=== PATIENT | male | born 1970 | race Caucasian/White ===

== ENCOUNTER → 2017-09-29 07:56 | Outpatient (CLI) | payer BC, SELFPAY ==
[2017-09-29 10:43] LABS: ALB/GLOB Ratio 1.4 RATIO (0.9-2.4); AST(SGOT) 23 U/L (15-37); Alanine Aminotransfer ALT/SGPT 58 U/L (16-61); Albumin, Serum 4.1 g/dL (3.2-5.0); Alkaline Phosphatase 83 U/L (45-117); Anion Gap 11 (5-15); BUN 14 mg/dL (7-18); BUN/Creat Ratio 14.6 RATIO (10-20); Calcium,Total 8.7 mg/dL (8.5-10.1); Chloride 102 mmol/L (98-107); Cholesterol 95 mg/dL (200); Creatinine, Serum 0.96 mg/dL (0.70-1.30); EST Glomerular Filtration Rate 89 mL/min (>60); Est Glom Filt Rate - Afr Amer 108 mL/min (>60); Glucose 268 mg/dL (74-106); High Density Lipoprotein 45 mg/dL; Protein, Total 7.1 g/dL (6.4-8.2); Sodium Level 136 mmol/L (136-145); Thyroid Stim Hormone (TSH) 1.04 uIU/mL (0.358-3.74); Triglycerides 142 mg/dL; Uric Acid 6.4 mg/dL (3.5-7.2); Very Low Density Lipoprotein 28 mg/dL (5-40)
[2017-09-29 11:14] LABS: Erythrocyte Sedimentation Rate < 1 mm/hr (0-15)
== END ==
PROVIDERS: Family Provider Family Medicine; PCP Family Medicine; Visit Provider Family Medicine
DX: M06.9 Rheumatoid arthritis, unspecified (principal); E11.9 Type 2 diabetes mellitus without complications; M10.9 Gout, unspecified
CPT/HCPCS: 36415; 80053; 80061; 81241; 82306; 84403; 84443; 84550; 85652

== ENCOUNTER 2018-07-23 14:01 | Outpatient (RCR) | payer BC, SELFPAY | END 2018-08-03 23:59 | LOC: NS 14:01 | PROVIDERS: Family Provider Family Medicine; PCP Family Medicine; Visit Provider Family Medicine | DX: E11.9 Type 2 diabetes mellitus without complications (principal); Z71.3 Dietary counseling and surveillance | CPT/HCPCS: 97802 ==

== ENCOUNTER 2018-09-01 16:00 | Outpatient (RCR) | payer BC, SELFPAY | END 2018-09-03 23:59 | LOC: NS 16:00 | PROVIDERS: Family Provider Family Medicine; PCP Family Medicine; Visit Provider Family Medicine | DX: E11.9 Type 2 diabetes mellitus without complications (principal); Z71.3 Dietary counseling and surveillance | CPT/HCPCS: 97803 ==

== ENCOUNTER 2018-10-28 16:00 | Outpatient (RCR) | payer BC, SELFPAY | END 2018-10-28 23:59 | disposition home or self-care (01) | LOC: NS 16:00 | PROVIDERS: Family Provider Family Medicine; PCP Family Medicine; Visit Provider Family Medicine | DX: E11.9 Type 2 diabetes mellitus without complications (principal); Z71.3 Dietary counseling and surveillance | CPT/HCPCS: 97803 ==

== ENCOUNTER → 2019-09-07 08:19 | Outpatient (CLI) | payer BC, SELFPAY ==
[2019-09-07 11:30] LABS: ALB/GLOB Ratio 1.3 RATIO (0.9-2.4); AST(SGOT) 8 U/L (15-37); Alanine Aminotransfer ALT/SGPT 33 U/L (16-61); Albumin, Serum 4.3 g/dL (3.2-5.0); Alkaline Phosphatase 98 U/L (45-117); Anion Gap 10 (5-15); BUN 20 mg/dL (7-18); BUN/Creat Ratio 16.4 RATIO (10-20); Calcium,Total 9.4 mg/dL (8.5-10.1); Chloride 102 mmol/L (98-107); Cholesterol 158 mg/dL (200); Creatinine, Serum 1.22 mg/dL (0.70-1.30); EST Glomerular Filtration Rate 67 mL/min (>60); Est Glom Filt Rate - Afr Amer 81 mL/min (>60); Globulin 3.4 g/dL (2.2-4.2); Glucose 310 mg/dL (74-106); High Density Lipoprotein 66 mg/dL; Potassium 4.3 mmol/L (3.5-5.1); Protein, Total 7.7 g/dL (6.4-8.2); Sodium Level 135 mmol/L (136-145); Thyroid Stim Hormone (TSH) 0.93 uIU/mL (0.358-3.74); Triglycerides 162 mg/dL; Very Low Density Lipoprotein 32 mg/dL (5-40)
== END ==
PROVIDERS: PCP Family Medicine; Referring Provider Family Medicine; Visit Provider Family Medicine
DX: M10.9 Gout, unspecified (principal); E11.9 Type 2 diabetes mellitus without complications
CPT/HCPCS: 36415; 80053; 80061; 84403; 84443; 84550

== ENCOUNTER 2021-04-25 16:29 | Inpatient (IN) | payer BC, SELFPAY ==
[2021-04-25] VITALS (9 sets, daily range): BP systolic 102–117; BP diastolic 68–87; PULSE 82–103; RESP 18–20; TEMP 36.8–37.2; O2SAT 87–94; BMI 30.4; BMI 29.7
--- NOTE | 2021-04-25 16:36 | RAD_ITS ---
STUDY: X-RAY CHEST REASON FOR EXAM: Male, 51 years old. COUGH TECHNIQUE: Single AP portable view of the chest. COMPARISON: None. FINDINGS: No pleural effusion. Moderate pulmonary opacities bilaterally suspicious for pneumonia. Normal size heart. Normal mediastinum and jeff. Normal visualized pulmonary arteries. Normal visualized aortic arch and descending thoracic aorta. Normal visualized thoracic spine. Normal visualized ribs, clavicles, and shoulders. There is no demonstrated abnormality of the visualized soft tissue structures of the upper abdomen. RAD/Chest 1 View IMPRESSION: Bilateral pulmonary opacities suspicious for pneumonia. Electronically Signed: Azra Mattson MD at 17:48 EDT Tel , Service support ,
[2021-04-25 17:17] LABS: Absolute Lymphocyte Count 0.86 X10^3/uL (0.83-4.51); Absolute Neutrophil Count 6.5 X10^3/uL (2.0-7.7); Basophil# 0.02 X10^3/uL; Basophil% 0.3 % (0-1); Hematocrit 46.9 % (40-54); Hemoglobin 16.1 g/dL (13.0-16.5); Lymphocyte # 0.86 X10^3/ul (0.83-4.51); Mean Corp Hgb Conc 34.3 g/dL (32-36); Mean Corpuscular Hgb 29.4 pg (27.0-32.0); Mean Corpuscular Volume 85.6 fL (80-94); Mean Platelet Vol. 11.1 fl (6.2-12.0); Monocyte# 0.37 X10^3/uL; Monocyte% 4.7 % (0-10); NRBC Flagged by Analyzer 0 % (0-5); Neutrophil # 6.45 X10^3/uL (2.7-7.7); Neutrophil % 82.7 % (47-70); Platelet Count 164 K/mm3 (150-450); RBC Distribution Width CV 12.2 % (11.6-14.6); RBC Distribution Width SD 38.2 fl (35.1-43.9); Red Blood Count 5.48 M/mm3 (4.6-6.2); White Blood Count 7.8 K/mm3 (4.4-11.0)
--- NOTE | 2021-04-25 17:30 | EX.ED.DYSGE1 ---
HPI History of Present Illness Chief Complaint: General Illness Detail of Chief Complaint: Shortness of breath and generalized weakness Informant: patient Narrative Narrative: Patient presents to the emergency department chief complaint of feeling weak and short of breath. Patient states that he was diagnosed with COVID-19 on April 18. Patient started with symptoms on the . Patient had had his first COVID-19 vaccine on the . Patient states that his pulse ox today's been in the 84% range at home. He has had fevers at home up to 104. He denies any chest pain. Patient's had intermittent nausea and vomiting as well as some intermittent diarrhea. Patient has history of diabetes as well as hypertension and high cholesterol. Prior similar symptoms: No PFSH [facility] Medical History (Updated 04/25/21 @ 20:[address] Leia Aguilar, ) Diabetes HLD (hyperlipidemia) Hypertension Allergy/AdvReac Type Severity Reaction Status Date / Time No Known Allergies Allergy Verified 04/25/21 16:32 Social History Smoking Status: Never smoker ROS [facility] ED Constitutional Constitutional ED: Reports systems reviewed and no addt'l complaints, except as documented and fever(s); Denies body ache(s), change in weight or chills Eyes Eyes: Denies acute decrease in peripheral vision, change in vision, double vision or loss of vision ENT ENT ED: Reports none; Denies ear pain, lip swelling, loss taste/smell, neck pain, otalgia or sore throat Cardiovascular Cardiovascular: Reports none; Denies abdominal pain, chest pain with activity, leg edema, lightheadedness, palpitations, rapid heart rate or syncope Respiratory/Chest Respiratory/Chest: Reports none, cough and dyspnea; Denies change in mental status, dry cough, hemoptysis, shortness of breath at rest or shortness of breath with exertion Gastrointestinal Gastrointestinal: Reports none; Denies abdominal pain, change in stool character, diarrhea, hematemesis, hematochezia, melena, rectal bleeding or vomiting Genitourinary Genitourinary ED: Reports none; Denies abdominal discomfort, anuria, dysuria, genital pain or polyuria Musculoskeletal Musculoskeletal: Reports none and myalgias; Denies arthralgias, back pain, difficulty walking, extremity pain or muscle weakness Integumentary Reports none; Denies abscess or rash Neurologic Neurologic: Reports none and weakness; Denies abnormal gait, confusion, focal weakness, frequent falls, headache(s), loss of vision, numbness, paresthesias, radicular pain or vertigo Psychiatric Psychiatric: Reports systems reviewed and no addt'l complaints, except as documented and none; Denies behavioral changes, confusion, difficulty concentrating, hallucinations, suicidal ideation, tactile hallucinations or visual hallucinations Endocrine Endocrinology: Denies none, cold intolerance, excessive sweating, fatigue or heat intolerance Hematologic/Lymphatic Hematologic/Lymphatic: Reports none; Denies anemia, easy bleeding or easy bruising Allergic/Immunologic Allergic/Immunologic ED: Denies as per HPI, none, lip swelling, mouth swelling, throat swelling, tongue swelling or hives EXAM Physical Exam Const Vital Signs: 04/25/21 16:30 04/25/21 17:17 04/25/21 18:15 Temperature 98.3 F 98.3 F Temperature Source Temporal Temporal Pulse Rate 103 H 103 H Respiratory Rate 20 H 20 H Respiratory Effort Normal Non-Labored Respiratory Pattern Normal Blood Pressure 117/87 H 117/87 H Blood Pressure Mean 97 97 Pulse Ox 91 91 87 Oxygen Delivery Method Room Air Room Air Room Air Oxygen Flow Rate (L/min) 04/25/21 18:20 04/25/21 18:22 Temperature 98.9 F Temperature Source Temporal Pulse Rate 84 Respiratory Rate 18 Respiratory Effort Respiratory Pattern Blood Pressure 102/68 Blood Pressure Mean 79 Pulse Ox 93 94 Oxygen Delivery Method Nasal Cannula Nasal Cannula Oxygen Flow Rate (L/min) 6 6 Positive well nourished and well developed General Appearance ED: well developed and NAD HEENT Reports TM's clear and moist mucous membranes normocephalic and atraumatic; Negative for trauma or tenderness Tympanic Membrane ED: Yes TM's clear Eyes PERRL and EOMs intact bilaterally General Eye ED: Negative for pale conjunctiva or scleral icterus Neck no lymphadenopathy, supple and no JVD General: Negative for tenderness Chest Wall inspection of chest normal and palpation of chest normal Chest: Negative for tenderness Resp normal respiratory effort and clear to auscultation bilaterally Effort and Inspection: Negative for respiratory distress or pain with movement Auscultation: Negative for rhonchi, wheezes or diminished lung sounds Cardio regular rhythm, S1 normal heart sound, S2 normal heart sound and no murmurs Rate: tachycardic Peripheral Pulses: pulses 2+ throughout GI normal to inspection, nondistended, normoactive bowel sounds, soft to palpation, non-tender, non-distended and no masses Back/Spine no CVA tenderness and no thoracic nor lumbar tenderness Extremity normal to inspection General Extremety ED: Negative for edema General Extremity: Negative for edema Neuro oriented x3, CN's II-XII intact bilaterally, no sensory deficits noted and gait normal Sensorium / Orientation: awake, alert, oriented to person, oriented to place and oriented to time Motor Exam: strength 5/5 throughout and strength abnormal Psych mental status grossly normal Skin no rashes or lesions noted and no wounds MDM MDM MDM Narrative Medical decision making narrative: Patient required significant O2 and is up to 6 L currently. There is no evidence of PE on exam. He is noted to have Covid pneumonia. Case will be discussed with hospitalist to evaluate patient for admission. He did receive dexamethasone 6 mg p.o. Patient will receive potassium chloride 40 mEq p.o. Lab Data Attestation: I reviewed the patient's lab results. Labs: Laboratory Results - last 24 hr 04/25/21 04/25/21 04/25/21 17:05 17:05 18:15 WBC 7.8 RBC 5.48 Hgb 16.1 Hct 46.9 MCV 85.6 MCH 29.4 MCHC 34.3 RDW Std Deviation 38.2 RDW Coeff of Vimal 12.2 Plt Count 164 MPV 11.1 Immature Gran % (Auto) 1.300 H Neut % (Auto) 82.7 H Lymph % (Auto) 11.0 L [place] % (Auto) 4.7 Eos % (Auto) 0.0 Baso % (Auto) 0.3 Absolute Neuts (auto) 6.5 Absolute Lymphs (auto) 0.86 Nucleated RBC % 0 D-Dimer Quant (PE/DVT) 0.87 H* Sodium 131 L Potassium 3.1 L Chloride 99 Carbon Dioxide 24.0 Anion Gap 8 BUN 21 H Creatinine 0.78 Estim Creat Clear Calc 116.99 Est GFR (MDRD) Af Amer 135 Est GFR (MDRD) Non-Af 112 BUN/Creatinine Ratio 26.9 H Glucose 87 Lactic Acid Calcium 8.5 04/25/21 18:15 WBC RBC Hgb Hct MCV MCH MCHC RDW Std Deviation RDW Coeff of Vimal Plt Count MPV Immature Gran % (Auto) Neut % (Auto) Lymph % (Auto) [place] % (Auto) Eos % (Auto) Baso % (Auto) Absolute Neuts (auto) Absolute Lymphs (auto) Nucleated RBC % D-Dimer Quant (PE/DVT) Sodium Potassium Chloride Carbon Dioxide Anion Gap BUN Creatinine Estim Creat Clear Calc Est GFR (MDRD) Af Amer Est GFR (MDRD) Non-Af BUN/Creatinine Ratio Glucose Lactic Acid 1.2 Calcium Radiography Chest X-Ray - ED: 1 View Diagnostic Testing: Radiology Impression Chest X-Ray 04/25/21 16:36 IMPRESSION: Bilateral pulmonary opacities suspicious for pneumonia. Electronically Signed: Azra Mattson MD at 17:48 EDT Tel , Service support , Chest CTA 04/25/21 19:03 IMPRESSION: 1. No pulmonary embolism or arterial dissection. 2. Bilateral pneumonia. Consider typical and atypical etiologies including pneumonia. Electronically Signed: Azra Mattson MD at 19:55 EDT Tel , Service support , 1 view chest x-ray obtained interpreted by myself as bilateral infiltrates. Radiology in agreement. Discharge Plan Triage Chief Complaint: General Illness ED Provider: Leia Aguilar Dx/Rx/DC Orders Clinical Impression: 2019 novel coronavirus-infected pneumonia (NCIP), Hypoxemia Primary Care Provider: Azar Ivy Referrals: Azar Ivy MD [Primary Care Provider] - Disposition Disposition: Acute Care Hospital [facility]
[2021-04-25 17:32] LABS: Anion Gap 8 (5-15); BUN 21 mg/dL (7-18); BUN/Creat Ratio 26.9 RATIO (10-20); Calcium,Total 8.5 mg/dL (8.5-10.1); Chloride 99 mmol/L (98-107); Creatinine, Serum 0.78 mg/dL (0.70-1.30); EST Glomerular Filtration Rate 112 mL/min (>60); Est Glom Filt Rate - Afr Amer 135 mL/min (>60); Estimated Creatinine Clearance 116.99 ml/min; Glucose 87 mg/dL (74-106); Potassium 3.1 mmol/L (3.5-5.1); Sodium Level 131 mmol/L (136-145)
[2021-04-25] MEDS: dexAMETHasone 4 MG Tablet 6 MG PO (18:08)
[2021-04-25] MEDS: 0.9% Normal Saline 1,000 ML 150 ML IV (18:09)
[2021-04-25 18:47] LABS: D-Dimer Quantitative (DVT/PE) 0.87 FEU/ug/m (0.27-0.49)
[2021-04-25 18:58] LABS: Lactic Acid 1.2 mmol/L (0.4-1.9)
--- NOTE | 2021-04-25 19:03 | CT_ITS ---
STUDY: CTA CHEST REASON FOR EXAM: Male, 51 years old. dyspnea RADIATION DOSAGE (If Supplied By Facility): CTDIvol = ( 15.04 ) mGy, DLP = ( 516.01 ) mGycm TECHNIQUE: The examination was performed with the intravenous administration of IV 100mL Isovue-370. Post-processing of the angiographic images was performed, with multiplanar reformation and 3D reconstruction. Individualized dose optimization techniques were used for this CT. COMPARISON: None. FINDINGS: Heart size and pericardium are unremarkable. The aorta is normal in caliber. No aneurysm or dissection. There is no mediastinal mass or adenopathy. There is no hilar or axillary adenopathy. There is no evidence of pulmonary embolus. There is no pleural effusion. Extensive bilateral airspace disease bilaterally consistent with pneumonia. Visualized abdomen is unremarkable. There is no osseous abnormality. CT/CTA Chest W/WO Contrast IMPRESSION: 1. No pulmonary embolism or arterial dissection. 2. Bilateral pneumonia. Consider typical and atypical etiologies including pneumonia. Electronically Signed: Azra Mattson MD at 19:55 EDT Tel , Service support ,
--- NOTE | 2021-04-25 20:09 | HP.PCM.HOS_ITS ---
HPI - General General Date of Admission: 04/25/21 Date of Service: 04/25/21 Chief Complaint: COVID Dx w/ worsening symptoms, cough, hypoxia, dyspnea. HPI Narrative The patient is a 51 y/o M w/ PMHx: Obesity, Diabetes mellitus type II, HTN, HLD, Anxiety and Depression who [facility] with history of significant fatigue, malaise with diagnosis of COVID-19 on 04/18/2021 with symptoms starting the day prior reporting that he did have his initial COVID-19 vaccination on the with progressively worsening fevers, chills, nausea, emesis, intermittent loose stools and worsening hypoxia with dyspnea and cough per his home pulse ox reporting at 84% when he is attempting to be active prompting eventual ED evaluation. Patient additionally reports decreased sense of taste and smell as well as body aches. His and his 2 children who are 17 and 20, all with only one single vaccination specifically Pfizer prior to onset of their symptoms are also ill at home. Work-up in the ED included T 98.9, heart rate 103, BP 117/87, respiratory rate 20, initially 87% on room air with eventual improvement to 94% on 6 L nasal cannula, CBC with WC 7.8, hemoglobin 16.1, platelet 164 with mild increased immature granulocytes otherwise no marked shift, D-dimer 0.87, BMP with sodium 131, potassium 3.1, BUN/creatinine 21/0.78, glucose 87, lactic acid 1.2, chest x-ray with bilateral pulmonary opacities suspicious for pneumonia, follow-up CTPA with no evidence of pulmonary emboli or arterial dissection, evident bilateral pneumonia, rapid Covid antigen was negative however he was tested outpatient already and was positive with presentation and imaging consistent with COVID-19, blood culture x2 pending per ED. in the ED patient ministered Decadron 6 mg p.o. x1 as well as normal saline. [facility] Medical History (Updated 04/25/21 @ 20:[address] Jenna Doe MD) Anxiety and depression Diabetes HLD (hyperlipidemia) Hypertension Obesity Home Medications atorvastatin 10 mg PO DAILY 04/25/21 [History Last Taken 04/25/21] benazepril 20 mg PO DAILY 04/25/21 [History Last Taken 04/25/21] dapagliflozin [Farxiga] 5 mg PO DAILY 04/25/21 [History Last Taken 04/25/21] duloxetine 30 mg PO DAILY 04/25/21 [History Last Taken 04/25/21] glipizide 10 mg PO BID 04/25/21 [History Last Taken 04/25/21] metformin 750 mg PO BID 04/25/21 [History Last Taken 04/25/21] Allergy/AdvReac Type Severity Reaction Status Date / Time No Known Allergies Allergy Verified 04/25/21 16:32 Family History (Updated 04/25/21 @ 20:[address] Jenna Doe MD) Mother History of venous thromboembolism Factor V Leiden mutation Father Heart disease Diabetes Surgical History (Updated 04/25/21 @ 20:[address] Jenna Doe MD) No significant past surgical history Social History (Updated 04/25/21 @ 20:[address] Jenna Doe MD) household members: spouse and children Smoking Status: Never smoker alcohol intake: never substance use type: does not use ROS ROS Narrative Admission Review of Systems: CONSTITUTIONAL: No weight loss, +fever, chills, weakness or fatigue. HEENT: Headache, sore throat, altered sense of taste and smell, congestion Eyes: No visual loss, blurred vision, double vision or yellow sclerae. Ears, Nose, Throat: No hearing loss, sneezing. SKIN: No rash or itching, lesions, wounds. CARDIOVASCULAR: No chest pain, chest pressure or chest discomfort, palpitations, edema, orthopnea, syncopal events. RESPIRATORY: +shortness of breath, cough without marked sputum, No wheezing, hemoptysis. GASTROINTESTINAL: + anorexia, nausea, vomiting, diarrhea, No abdominal pain, melena, BRBPR. GENITOURINARY: No dysuria, frequency, urgency or retention. NEUROLOGICAL: + headache, No dizziness, syncope, paralysis, ataxia, numbness or tingling in the extremities, focal weakness, change in bowel or bladder control, seizure. MUSCULOSKELETAL:+ muscle, back pain, joint pain or stiffness. HEMATOLOGIC: No anemia, bleeding or bruising. LYMPHATICS: No enlarged nodes. No history of splenectomy. PSYCHIATRIC: + history of depression or anxiety. ENDOCRINOLOGIC: No reports of sweating, cold or heat intolerance. No polyuria or polydipsia. ALLERGIES: No history of asthma, hives, eczema or rhinitis. Vital Signs Vital Signs Vital Signs: 04/25/21 16:30 04/25/21 17:17 04/25/21 18:15 Temperature 98.3 F 98.3 F Temperature Source Temporal Temporal Pulse Rate 103 H 103 H Respiratory Rate 20 H 20 H Respiratory Effort Normal Non-Labored Respiratory Pattern Normal Blood Pressure 117/87 H 117/87 H Blood Pressure Mean 97 97 Pulse Ox 91 91 87 Oxygen Delivery Method Room Air Room Air Room Air Oxygen Flow Rate (L/min) 04/25/21 18:20 04/25/21 18:22 Temperature 98.9 F Temperature Source Temporal Pulse Rate 84 Respiratory Rate 18 Respiratory Effort Respiratory Pattern Blood Pressure 102/68 Blood Pressure Mean 79 Pulse Ox 93 94 Oxygen Delivery Method Nasal Cannula Nasal Cannula Oxygen Flow Rate (L/min) 6 6 Weight Weight: 215 lb Body Mass Index (BMI) 30.4 Physical Exam Narrative Physical Examination: General: Awake, alert, oriented x 3 and cooperative, seated upright in the ED bed, ill-appearing. Skin: Flushed color, normal turgor, no icterus, no cyanosis. HEENT: AT/NC, EOMI, PERRLA, dry MM, no carotid bruits or JVD noted. Lungs: Severely diminished, greater bases, difficulty taking any deep breath secondary to coughing elicited, increased respiratory rate, evidence respiratory increased work of breathing with mild accessory usage, no rales, ronchi or wheezing. Heart: Tachycardic with regular rhythm; no gallop, rub audible. Abdomen: Soft, NTTP, no obvious distention, hypoactive bowel sounds, no obvious HSM. Extremities: No cyanosis, clubbing, or edema. Neurological: Patient awake, alert, oriented as noted, cognitive function intact; pupils equally reactive to light and accommodation, cranial nerves II- XII grossly normal, moving all 4 extremities, no focal deficits, strength severely globally [place] secondary to acute presentation. Psychiatric: Affect appears fatigued, ill-appearing, evidence of increased work of breathing, no acute evidence of depressive or anxiety feelings. Results Lab / Micro Data Result Diagrams: 04/25/21 17:05 04/25/21 17:05 Labs: Laboratory Results - last 24 hr 04/25/21 17:05: WBC 7.8, RBC 5.48, Hgb 16.1, Hct 46.9, MCV 85.6, MCH 29.4, MCHC 34.3, RDW Std Deviation 38.2, RDW Coeff of Vimal 12.2, Plt Count 164, MPV 11.1, Immature Gran % (Auto) 1.300 H, Neut % (Auto) 82.7 H, Lymph % (Auto) 11.0 L, [place] % (Auto) 4.7, Eos % (Auto) 0.0, Baso % (Auto) 0.3, Absolute Neuts (auto) 6.5, Absolute Lymphs (auto) 0.86, Nucleated RBC % 0 04/25/21 17:05: Sodium 131 L, Potassium 3.1 L, Chloride 99, Carbon Dioxide 24.0, Anion Gap 8, BUN 21 H, Creatinine 0.78, Estim Creat Clear Calc 116.99, Est GFR (MDRD) Af Amer 135, Est GFR (MDRD) Non-Af 112, BUN/Creatinine Ratio 26.9 H, Glucose 87, Calcium 8.5 04/25/21 18:15: D-Dimer Quant (PE/DVT) 0.87 H* 04/25/21 18:15: Lactic Acid 1.2 Micro: Microbiology 04/25/21 16:41 Nasal Secretion SARS-CoV-2 Antigen (Rapid) - Final Radiology Impression Chest X-Ray 04/25/21 16:36 IMPRESSION: Bilateral pulmonary opacities suspicious for pneumonia. Electronically Signed: Azra Mattson MD at 17:48 EDT Tel , Service support , Chest CTA 04/25/21 19:03 IMPRESSION: 1. No pulmonary embolism or arterial dissection. 2. Bilateral pneumonia. Consider typical and atypical etiologies including pneumonia. Electronically Signed: Azra Mattson MD at 19:55 EDT Tel , Service support , Assessment & Plan Assessment/Plan (1) 2019 novel coronavirus-infected pneumonia (NCIP): (2) Hypoxemia: PLAN: The patient is a 51 y/o M w/ PMHx: Obesity, Diabetes mellitus type I I, HTN, HLD, Anxiety and Depression who [facility]21 with history of significant fatigue, malaise with diagnosis of COVID-19 on 04/18/2021 with symptoms starting the day prior reporting that he did have his initial COVID-19 vaccination on the with progressively worsening fevers, chills, nausea, emesis, intermittent loose stools and worsening hypoxia with dyspnea and cough per his home pulse ox reporting at 84% when he is attempting to be active prompting eventual ED evaluation. 1. Acute Hypoxic Respiratory Failure secondary to Acute Bilateral Pneumonia secondary to Acute Viral Syndrome, COVID-19: Will admit to the MS unit with continued Covid precautions given timeline, will maintain on oxygen with wean as tolerated to room air, PRN albuterol, HOB, IS parameters w/ pending sputum cultures, respiratory viral panel and urine antigens, will hepatic profile, proc alcitonin, CRP, CPK, Ferritin, LDH, trop and BNP, continue supportive care including q 2 hour turning including prone given no prone bed availability and judicious hydration, closely monitor for worsening status for ARDS and multiorgan failure, will initiate and continue IV decadron x 10 doses, given presentation will also initiate IV remdesivir but defer to discretion of Infectious disease. 2. Hypokalemia: Admission K+ 3.1, magnesium level requested, supplementation given, repeat level in AM. 3. Diabetes mellitus type II: Hold oral home regimen, ADA diet, accu checks w/ ISS. 4. Hypertension: Continue home regimen including benazepril with hold parameters as needed, PRN hydralazine. 5. Hyperlipidemia: Continue home statin regimen. 6. Anxiety and depression: We will continue patient home duloxetine regimen. 7. Obesity: Encourage diet lifestyle changes. 8. DVT prophylaxis: SCDs, Lovenox. 9. CODE status: Patient does not have healthcare power of business attorney nor living will. Given severity of presentation with Covid already requiring 6 L nasal cannula, discussed CODE status at length including difference between FULL code, DNR-CCA and DNR-CC status. Following discussions about the differences in these status, requested Full Code status and amenable to airvo and BIPAP if necessary. Advanced Care Planning Face to Face Time: 16 minutes. Charges/Coding Visit Charges Inpatient E&M: 49114 Init Hosp L3 Procedures Hospitalists Procedures: 86468 Advncd Care Plan 30 Min
--- NOTE | 2021-04-25 20:17 | NURSING ---
DR GUNTER FOR DR YANG
--- NOTE | 2021-04-25 20:32 | NURSING ---
MED SURG WHITE COVID, PNEUMONIA, HYPOXEMIA
[2021-04-25] MEDS: Potassium Chloride Oral Tablet 20 MEQ 40 MEQ PO (20:49)
[2021-04-25 21:29] LABS: Procalcitonin 0.35 ng/mL (0.00-0.09)
--- NOTE | 2021-04-25 21:46 | PCS.PANDOC ---
PANDEMIC DOCUMENTATION INITIATED: Date: 03/19/2021 Time: 190
[2021-04-25] MEDS: 0.9% Normal Saline 1,000 ML 100 ML IV (21:52)
[2021-04-25] MEDS: 0.9% Saline Lock 10 ML Syringe IV (22:13)
[2021-04-25 22:30] LABS: AST(SGOT) 90 U/L (15-37); Alanine Aminotransfer ALT/SGPT 65 U/L (16-61); Albumin, Serum 2.9 g/dL (3.2-5.0); Alkaline Phosphatase 52 U/L (45-117); Bilirubin, Direct 0.26 mg/dL (0.00-0.30); Ferritin 6103 ng/mL (26-388); Globulin 4.8 g/dL (2.2-4.2); LDH 671 U/L (87-241); Magnesium 2.9 mg/dL (1.6-2.6); Protein, Total 7.7 g/dL (6.4-8.2)
[2021-04-25] MEDS: Enoxaparin 30 MG/0.3 ML Syringe SC (22:58)
[2021-04-25] MEDS: Famotidine 20 MG Tablet PO (22:58)
[2021-04-25] MEDS: Atorvastatin Calcium 10 MG Tablet PO (22:58)
[2021-04-25] MEDS: Insulin Lispro 100 UNIT/ML INSULN.PEN SC (23:06)
[2021-04-25 23:16] LABS: Bedside Glucose 191 mg/dL (70-110)
[2021-04-26] VITALS (9 sets, daily range): BP systolic 114–120; BP diastolic 74–79; PULSE 63–88; RESP 18–21; TEMP 36.4–37.4; O2SAT 96–97
[2021-04-26 05:19] LABS: Absolute Lymphocyte Count 0.39 X10^3/uL (0.83-4.51); Absolute Neutrophil Count 2.3 X10^3/uL (2.0-7.7); Basophil# 0.02 X10^3/uL; Basophil% 0.7 % (0-1); Hematocrit 43.9 % (40-54); Lymphocyte # 0.39 X10^3/ul (0.83-4.51); Lymphocyte % 12.8 % (19-41); Mean Corp Hgb Conc 34.2 g/dL (32-36); Mean Corpuscular Hgb 30.2 pg (27.0-32.0); Mean Corpuscular Volume 88.3 fL (80-94); Mean Platelet Vol. 10.8 fl (6.2-12.0); Monocyte# 0.22 X10^3/uL; Monocyte% 7.2 % (0-10); NRBC Flagged by Analyzer 0 % (0-5); Neutrophil # 2.29 X10^3/uL (2.7-7.7); Neutrophil % 75.4 % (47-70); POSITIVE DIFFERENTIAL YES; Platelet Count 143 K/mm3 (150-450); RBC Distribution Width CV 12.5 % (11.6-14.6); RBC Distribution Width SD 40.5 fl (35.1-43.9); Red Blood Count 4.97 M/mm3 (4.6-6.2)
[2021-04-26 05:34] LABS: Differential Indicated SCAN CRITERIA MET
[2021-04-26 06:14] LABS: ALB/GLOB Ratio 0.5 RATIO (0.9-2.4); AST(SGOT) 79 U/L (15-37); Alanine Aminotransfer ALT/SGPT 66 U/L (16-61); Albumin, Serum 2.3 g/dL (3.2-5.0); Alkaline Phosphatase 48 U/L (45-117); Anion Gap 8 (5-15); BUN 17 mg/dL (7-18); BUN/Creat Ratio 22.1 RATIO (10-20); Chloride 104 mmol/L (98-107); Creatinine, Serum 0.77 mg/dL (0.70-1.30); EST Glomerular Filtration Rate 114 mL/min (>60); Est Glom Filt Rate - Afr Amer 138 mL/min (>60); Estimated Creatinine Clearance 118.51 ml/min; Globulin 4.2 g/dL (2.2-4.2); Glucose 209 mg/dL (74-106); Potassium 4.2 mmol/L (3.5-5.1); Protein, Total 6.5 g/dL (6.4-8.2); Sodium Level 136 mmol/L (136-145)
[2021-04-26] MEDS: Insulin Lispro 100 UNIT/ML INSULN.PEN SC ×4 (06:40→22:04)
[2021-04-26 06:46] LABS: Bedside Glucose 180 mg/dL (70-110)
[2021-04-26] MEDS: Lisinopril 20 MG Tablet PO (10:03)
[2021-04-26] MEDS: dexAMETHasone 4 MG/ML Vial 6 MG IV (10:04)
[2021-04-26] MEDS: Famotidine 20 MG Tablet PO ×2 (10:04→22:08)
[2021-04-26] MEDS: Enoxaparin 30 MG/0.3 ML Syringe SC ×2 (10:05→22:05)
[2021-04-26] MEDS: DULoxetine Hcl 30 MG Capsule PO (10:06)
[2021-04-26] MEDS: Acetaminophen 325 MG Tablet 650 MG PO (10:07)
[2021-04-26] MEDS: guaiFENesin 10 ML UDC (200MG/10ML) 20 ML PO (10:08)
[2021-04-26 12:31] LABS: Bedside Glucose 228 mg/dL (70-110)
[2021-04-26 12:45] LABS: Pathologist Review Reviewed
--- NOTE | 2021-04-26 13:00 | CASEMGMT ---
RN CM CONTINUOUS DRIER OPERATOR CM to room to meet with patient for initial transition planning/care coordination assessment. REGINA FRIEDMAN introduced self and role at [facility]. Pt voices understanding and consents to assessment at this time. Pt sitting up in recliner in room in no distress at this time. Pt is A/O at this time and answers all questions appropriately. Care providers, pharmacy, and demographics verified/updated at this time. Pt states he had COVID testing done 04/18 @ [facility] in [place]. PCP: Dr Ivy Specialists: none Preferred Pharmacy: [facility] Insurance: [place] Prescription Benefit: Yes Living Will/HPOA: States does not have LW or HCPOA . Interested in more information. Provided information on advanced directives and given Social Service rac card with number to call if chooses in the future to utilize [facility] social work for advanced directive completion once he is out of COVID isolation. Pt also provided w/AD forms. LNOK: , Luisa Living Arrangements: Lives w/, who is an RN, and 2 dtr's (ages 17 and 20). Pt reports all of them are @ home and ill. Pt was independent prior to recent illness w/COVID. Pt states they have other family members that lives nearby that can help bring groceries/supplies, if needed. Transportation: Pt states drives self and states no transportation concerns at this time. also drives. DME: States has the following DME: pulse ox, functioning glucometer. No home O2. Pt made aware he may qualify for O2 @ d/c. Pt provided w/list of local DME companies. Pt chooses [employer]. Pt states no need for further DME at this time. HHC/SNF: No history of either. Denies need for HHC and no needs identified. Pt wishes to return home and states has no concerns with going home at time of discharge. CM to follow for home oxygen needs and any further discharge planning/needs. Pt voices no further concerns/needs at this time. Advised pt to ask for CM if any further questions/concerns/needs arise. Voices understanding. PLAN: Home. Follow for any O2 needs @ d/c. Chayito CARABALLO RN, CM
[2021-04-26 18:00] LABS: Bedside Glucose 282 mg/dL (70-110)
--- NOTE | 2021-04-26 18:33 | PN.HOSP_ITS ---
Subjective Subjective Patient was seen and examined today, he is currently on 2 L of oxygen via nasal cannula, patient has no complaints of any shortness of breath. Objective Data Objective Data Vital Signs: Vital Signs Temp Pulse Resp BP Pulse Ox 97.8 F 88 21 H 120/77 97 04/26/21 15:52 04/26/21 16:26 04/26/21 15:52 04/26/21 15:52 04/26/21 15:52 Oxygen Flow Rate (L/min) 2 Oxygen Delivery Method Nasal Cannula Weight: 94.1 kg Body Mass Index (BMI) 29.7 Intake & Output: Intake and Output for Last 24 Hours 04/24/21 04/25/21 04/26/21 23:59 23:59 23:59 Intake Total 2160 / 2160 1770 / 1770 Balance 2160 / 2160 1770 / 1770 Lab / Micro Data Result Diagrams: 04/26/21 04:56 04/26/21 04:56 Labs: Laboratory Results - last 24 hr 04/25/21 17:05: Magnesium 2.9 H, Ferritin 6103 H, Total Bilirubin 0.90, Direct Bilirubin 0.26, AST 90 H, ALT 65 H, Alkaline Phosphatase 52, Lactate Dehydrogenase 671 H, C-React Prot Ext Range 116.00 H, Total Protein 7.7, Albumin 2.9 L, Globulin 4.8 H 04/25/21 17:05: B-Natriuretic Peptide 4.0 04/25/21 17:05: Procalcitonin 0.35 H 04/25/21 18:15: D-Dimer Quant (PE/DVT) 0.87 H* 04/25/21 18:15: Lactic Acid 1.2 04/25/21 23:02: POC Glucose 191 H 04/26/21 04:56: WBC 3.0 L, RBC 4.97, Hgb 15.0, Hct 43.9, MCV 88.3, MCH 30.2, MCHC 34.2, RDW Std Deviation 40.5, RDW Coeff of Vimal 12.5, Plt Count 143 L, MPV 10.8, Immature Gran % (Auto) 3.900 H, Neut % (Auto) 75.4 H, Lymph % (Auto) 12.8 L, [place] % (Auto) 7.2, Eos % (Auto) 0.0, Baso % (Auto) 0.7, Absolute Neuts (auto) 2.3, Absolute Lymphs (auto) 0.39 L, Nucleated RBC % 0, Diff Path Review Reviewed 04/26/21 04:56: Sodium 136, Potassium 4.2, Chloride 104, Carbon Dioxide 24.0, Anion Gap 8, BUN 17, Creatinine 0.77, Estim Creat Clear Calc 118.51, Est GFR (MDRD) Af Amer 138, Est GFR (MDRD) Non-Af 114, BUN/Creatinine Ratio 22.1 H, Glucose 209 H, Calcium 8.0 L, Total Bilirubin 0.80, AST 79 H, ALT 66 H, Alkaline Phosphatase 48, Total Protein 6.5, Albumin 2.3 L, Globulin 4.2, Albumin/Globulin Ratio 0.5 L 04/26/21 06:38: POC Glucose 180 H 04/26/21 12:17: POC Glucose 228 H 04/26/21 17:39: POC Glucose 282 H Micro: Microbiology 04/25/21 21:50 Mucosa - Nasopharyngeal Respiratory Panel (PCR) - Final 04/25/21 22:15 Interface Orders Legionella Antigen - Final 04/25/21 22:15 Urine, Clean Catch Streptococcus pneumoniae Antigen (M - Final 04/25/21 16:41 Nasal Secretion SARS-CoV-2 Antigen (Rapid) - Final Radiography Diagnostic Testing: Radiology Impression Chest CTA 04/25/21 19:03 IMPRESSION: 1. No pulmonary embolism or arterial dissection. 2. Bilateral pneumonia. Consider typical and atypical etiologies including pneumonia. Electronically Signed: Azra Mattson MD at 19:55 EDT Tel , Service support , Physical Exam Const alert, oriented x3, no apparent distress and healthy appearing General Appearance: cooperative, well kempt and well developed Orientation / Consciousness: awake, oriented to person, oriented to place and oriented to time HEENT normocephalic, head/scalp atraumatic and moist oral mucous membranes Head and Scalp: normocephalic Eyes PERRL, EOMs intact bilaterally and conjunctivae normal Neck nuchal rigidity, supple, no JVD, thyroid normal and no carotid bruits General: trachea midline Resp normal respiratory effort, no retractions, no use of accessory muscles and clear to auscultation bilaterally Auscultation: Negative for rales, rhonchi or wheezes Cardio regular rate, regular rhythm, S1 normal heart sound, S2 normal heart sound, no murmurs, no rub, no gallops and no clicks GI normal to inspection, nondistended, normoactive bowel sounds, soft to palpation, non-tender and non-distended Extremity no clubbing, cyanosis or edema Skin no rashes or lesions noted General Skin Exam: no breakdown Neuro oriented x3, CN's II-XII intact bilaterally, no focal motor deficits and no sensory deficits noted Sensorium / Orientation: awake and alert Speech: speech normal Psych thought process normal and affect normal Assessment & Plan Assessment/Plan (1) 2019 novel coronavirus-infected pneumonia (NCIP): PLAN: 1. COVID-19 pneumonia-continue remdesivir and dexamethasone-day #2 #2 acute hypoxic respiratory failure-continue to monitor O2 sat and adjust O2 accordingly #3 type 2 diabetes #4 hyperlipidemia #5 hypertension Charges/Coding Visit Charges Inpatient E&M: 54258 Subs Hosp L2
[2021-04-26] MEDS: Atorvastatin Calcium 10 MG Tablet PO (22:07)
[2021-04-26 22:15] LABS: Bedside Glucose 288 mg/dL (70-110)
[2021-04-27] VITALS (10 sets, daily range): BP systolic 111–125; BP diastolic 71–77; PULSE 56–90; RESP 17–18; TEMP 36.6–36.8; O2SAT 94–96
[2021-04-27] MEDS: MELATONIN 3 MG TABLET PO (01:27)
[2021-04-27] MEDS: Insulin Lispro 100 UNIT/ML INSULN.PEN SC ×4 (07:30→20:21)
[2021-04-27 07:36] LABS: Bedside Glucose 241 mg/dL (70-110)
[2021-04-27] MEDS: Lisinopril 20 MG Tablet PO (09:09)
[2021-04-27] MEDS: Famotidine 20 MG Tablet PO ×2 (09:09→20:21)
[2021-04-27] MEDS: DULoxetine Hcl 30 MG Capsule PO (09:09)
[2021-04-27] MEDS: guaiFENesin 10 ML UDC (200MG/10ML) 20 ML PO (09:09)
[2021-04-27] MEDS: Acetaminophen 325 MG Tablet 650 MG PO ×2 (09:09→18:53)
[2021-04-27] MEDS: Enoxaparin 30 MG/0.3 ML Syringe SC ×2 (09:11→20:20)
[2021-04-27] MEDS: dexAMETHasone 4 MG/ML Vial 6 MG IV (09:11)
[2021-04-27 11:41] LABS: Bedside Glucose 298 mg/dL (70-110)
[2021-04-27] MEDS: Albuterol Sulfate 8 gm Inhaler (60 puffs) 2 PUFF INHALATION ×2 (15:55→18:54)
--- NOTE | 2021-04-27 15:56 | CASEMGMT ---
Green sheet on chart for home oxygen, if pt qualifies. Pt is independent in the room at this time. Dave TAPIA CM
[2021-04-27 17:30] LABS: Bedside Glucose 301 mg/dL (70-110)
--- NOTE | 2021-04-27 18:20 | PCM.PN.HOSP ---
Subjective Subjective Patient was seen and examined today, he is requiring 2 L of supplemental oxygen to maintain his pulse ox. Objective Data Objective Data Vital Signs: Vital Signs Temp Pulse Resp BP Pulse Ox 97.8 F 72 17 111/77 96 04/27/21 15:51 04/27/21 15:51 04/27/21 15:51 04/27/21 15:51 04/27/21 15:51 Oxygen Flow Rate (L/min) 2 Oxygen Delivery Method Nasal Cannula Weight: 92.3 kg Body Mass Index (BMI) 29.7 Intake & Output: Intake and Output for Last 24 Hours 04/25/21 04/26/21 04/27/21 23:59 23:59 23:59 Intake Total 2160 / 2160 2170 / 2170 890 / 890 Balance 2160 / 2160 2170 / 2170 890 / 890 Lab / Micro Data Result Diagrams: 04/26/21 04:56 04/26/21 04:56 Labs: Laboratory Results - last 24 hr 04/26/21 22:04: POC Glucose 288 H 04/27/21 07:29: POC Glucose 241 H 04/27/21 11:29: POC Glucose 298 H 04/27/21 17:18: POC Glucose 301 H Micro: Microbiology 04/25/21 21:50 Mucosa - Nasopharyngeal Respiratory Panel (PCR) - Final 04/25/21 22:15 Interface Orders Legionella Antigen - Final 04/25/21 22:15 Urine, Clean Catch Streptococcus pneumoniae Antigen (M - Final 04/25/21 16:41 Nasal Secretion SARS-CoV-2 Antigen (Rapid) - Final Physical Exam Const alert, oriented x3, no apparent distress and healthy appearing General Appearance: cooperative, well kempt and well developed Orientation / Consciousness: awake, oriented to person, oriented to place and oriented to time HEENT normocephalic and moist oral mucous membranes Eyes PERRL, EOMs intact bilaterally and conjunctivae normal Neck nuchal rigidity, supple, no JVD, thyroid normal and no carotid bruits General: trachea midline Resp normal respiratory effort and clear to auscultation bilaterally Auscultation: Negative for rales, rhonchi or wheezes Cardio regular rate, regular rhythm, no murmurs, no rub and no gallops GI normal to inspection, nondistended, normoactive bowel sounds, soft to palpation, non-tender and non-distended Extremity no clubbing, cyanosis or edema Skin no rashes or lesions noted General Skin Exam: no breakdown Neuro oriented x3, CN's II-XII intact bilaterally, no focal motor deficits and no sensory deficits noted Sensorium / Orientation: awake and alert Speech: speech normal Psych thought process normal and affect normal Assessment & Plan Assessment/Plan (1) 2019 novel coronavirus-infected pneumonia (NCIP): PLAN: 1. COVID-19 pneumonia-continue remdesivir and dexamethasone-day #3 #2 acute hypoxic respiratory failure-continue to monitor O2 sat and adjust O2 accordingly, I have added a Proventil inhaler to his regimen #3 type 2 diabetes #4 hyperlipidemia #5 hypertension Charges/Coding Visit Charges Inpatient E&M: 99851 Subs Hosp L2
[2021-04-27] MEDS: 0.9% Saline Lock 10 ML Syringe IV (20:20)
[2021-04-27] MEDS: Atorvastatin Calcium 10 MG Tablet PO (20:21)
[2021-04-27 21:21] LABS: Bedside Glucose 290 mg/dL (70-110)
[2021-04-28] VITALS (13 sets, daily range): BP systolic 109–140; BP diastolic 75–87; PULSE 40–66; RESP 18–24; TEMP 36.3–36.8; O2SAT 88–97
[2021-04-28] MEDS: BENZOCAINE/MENTHOL 1 LOZENGE MUCOUS MEM (01:33)
[2021-04-28] MEDS: guaiFENesin 10 ML UDC (200MG/10ML) 20 ML PO (01:33)
[2021-04-28] MEDS: 0.9% Saline Lock 10 ML Syringe IV (01:33)
[2021-04-28] MEDS: Insulin Lispro 100 UNIT/ML INSULN.PEN SC ×4 (06:25→21:17)
[2021-04-28 06:41] LABS: Bedside Glucose 224 mg/dL (70-110)
[2021-04-28] MEDS: Lisinopril 20 MG Tablet PO (10:12)
[2021-04-28] MEDS: DULoxetine Hcl 30 MG Capsule PO (10:12)
[2021-04-28] MEDS: Famotidine 20 MG Tablet PO ×3 (10:12→21:19)
[2021-04-28] MEDS: dexAMETHasone 4 MG/ML Vial 6 MG IV (10:13)
[2021-04-28] MEDS: Enoxaparin 30 MG/0.3 ML Syringe SC ×2 (10:17→21:16)
[2021-04-28] MEDS: Albuterol Sulfate 8 gm Inhaler (60 puffs) 2 PUFF INHALATION ×3 (10:18→18:35)
[2021-04-28 13:01] LABS: Bedside Glucose 300 mg/dL (70-110)
[2021-04-28 17:21] LABS: Bedside Glucose 400 mg/dL (70-110)
--- NOTE | 2021-04-28 17:30 | PCM.PN.HOSP ---
Subjective Subjective Patient was seen and examined today, he remains on nasal cannula oxygen, he does not appear to be short of breath at rest. Objective Data Objective Data Vital Signs: Vital Signs Temp Pulse Resp BP Pulse Ox 98.3 F 66 24 H 109/77 93 04/28/21 17:06 04/28/21 17:06 04/28/21 17:06 04/28/21 17:06 04/28/21 17:06 Oxygen Flow Rate (L/min) [ 2 AMBULATING with Oxygen #1] Oxygen Flow Rate (L/min) [At 2 REST with Oxygen] Oxygen Flow Rate (L/min) 2 Oxygen Delivery Method Nasal Cannula Weight: 93.4 kg Body Mass Index (BMI) 29.7 Intake & Output: Intake and Output for Last 24 Hours 04/26/21 04/27/21 04/28/21 23:59 23:59 23:59 Intake Total 2170 / 2170 1860 / 1860 420 / 420 Balance 2170 / 2170 1860 / 1860 420 / 420 Lab / Micro Data Result Diagrams: 04/26/21 04:56 04/26/21 04:56 Labs: Laboratory Results - last 24 hr 04/27/21 17:18: POC Glucose 301 H 04/27/21 20:18: POC Glucose 290 H 04/28/21 06:21: POC Glucose 224 H 04/28/21 12:52: POC Glucose 300 H 04/28/21 17:09: POC Glucose 400 H Micro: Microbiology 04/25/21 18:15 Blood Culture (Wb) - Right Hand Blood Culture - Preliminary No growth in 48 hours. 04/25/21 18:10 Blood Culture (Wb) - Anticubital Right Blood Culture - Preliminary No growth in 48 hours. 04/25/21 21:50 Mucosa - Nasopharyngeal Respiratory Panel (PCR) - Final 04/25/21 22:15 Interface Orders Legionella Antigen - Final 04/25/21 22:15 Urine, Clean Catch Streptococcus pneumoniae Antigen (M - Final 04/25/21 16:41 Nasal Secretion SARS-CoV-2 Antigen (Rapid) - Final Physical Exam Const alert, oriented x3, no apparent distress and healthy appearing General Appearance: cooperative, well kempt and well developed Orientation / Consciousness: awake, oriented to person, oriented to place and oriented to time HEENT normocephalic, head/scalp atraumatic and moist oral mucous membranes Head and Scalp: normocephalic Eyes PERRL, EOMs intact bilaterally and conjunctivae normal Neck nuchal rigidity, supple, no JVD, thyroid normal and no carotid bruits General: trachea midline Resp normal respiratory effort, no retractions and no use of accessory muscles Resp Narrative: Decreased breath sounds bilaterally Auscultation: Negative for rales, rhonchi or wheezes Cardio regular rate, regular rhythm, S1 normal heart sound, S2 normal heart sound, no murmurs, no rub and no gallops GI normal to inspection, nondistended, normoactive bowel sounds, soft to palpation, non-tender and non-distended Extremity no clubbing, cyanosis or edema Skin no rashes or lesions noted General Skin Exam: no breakdown Neuro oriented x3, CN's II-XII intact bilaterally, no focal motor deficits and no sensory deficits noted Sensorium / Orientation: awake and alert Speech: speech normal Psych thought process normal and affect normal Assessment & Plan Assessment/Plan (1) 2019 novel coronavirus-infected pneumonia (NCIP): PLAN: 1. COVID-19 pneumonia-continue remdesivir and dexamethasone-day #4 #2 acute hypoxic respiratory failure-continue to monitor O2 sat and adjust O2 accordingly, patient remains on a Proventil inhaler #3 type 2 diabetes #4 hyperlipidemia #5 hypertension Charges/Coding Visit Charges Inpatient E&M: 76728 Subs Hosp L2
[2021-04-28] MEDS: Atorvastatin Calcium 10 MG Tablet PO ×2 (21:16→21:19)
[2021-04-28 21:31] LABS: Bedside Glucose 344 mg/dL (70-110)
[2021-04-29] VITALS (13 sets, daily range): BP systolic 105–116; BP diastolic 73–81; PULSE 60–95; RESP 16–20; TEMP 36.1–37.3; O2SAT 92–95
[2021-04-29] MEDS: Insulin Lispro 100 UNIT/ML INSULN.PEN SC ×4 (06:58→23:18)
[2021-04-29 07:06] LABS: Bedside Glucose 251 mg/dL (70-110)
[2021-04-29] MEDS: 0.9% Saline Lock 10 ML Syringe IV (10:17)
[2021-04-29] MEDS: DULoxetine Hcl 30 MG Capsule PO (10:18)
[2021-04-29] MEDS: Enoxaparin 30 MG/0.3 ML Syringe SC ×2 (10:18→22:21)
[2021-04-29] MEDS: Albuterol Sulfate 8 gm Inhaler (60 puffs) 2 PUFF INHALATION ×4 (10:19→23:18)
[2021-04-29] MEDS: Lisinopril 20 MG Tablet PO (10:19)
[2021-04-29] MEDS: dexAMETHasone 4 MG/ML Vial 6 MG IV (10:19)
[2021-04-29 13:05] LABS: Bedside Glucose 346 mg/dL (70-110)
[2021-04-29 16:07] LABS: Bedside Glucose 372 mg/dL (70-110)
--- NOTE | 2021-04-29 18:11 | PN.HOSP_ITS ---
Subjective Subjective Patient was seen and examined today, he still remains on nasal cannula oxygen at this time at 2 L. Patient does not complain of any shortness of breath at rest to this examiner. Objective Data Objective Data Vital Signs: Vital Signs Temp Pulse Resp BP Pulse Ox 97 F L 87 19 H 105/73 94 04/29/21 15:53 04/29/21 15:53 04/29/21 15:53 04/29/21 15:53 04/29/21 15:53 Oxygen Flow Rate (L/min) [ 2 AMBULATING with Oxygen #1] Oxygen Flow Rate (L/min) [At 2 REST with Oxygen] Oxygen Flow Rate (L/min) 2 Oxygen Delivery Method Nasal Cannula Weight: 93.4 kg Body Mass Index (BMI) 29.7 Intake & Output: Intake and Output for Last 24 Hours 04/27/21 04/28/21 04/29/21 23:59 23:59 23:59 Intake Total 1860 / 1860 670 / 920 640 / 640 Balance 1860 / 1860 670 / 920 640 / 640 Lab / Micro Data Result Diagrams: 04/26/21 04:56 04/26/21 04:56 Labs: Laboratory Results - last 24 hr 04/28/21 21:16: POC Glucose 344 H 04/29/21 06:57: POC Glucose 251 H 04/29/21 12:47: POC Glucose 346 H 04/29/21 15:49: POC Glucose 372 H Micro: Microbiology 04/25/21 18:15 Blood Culture (Wb) - Right Hand Blood Culture - Preliminary No growth in 48 hours. 04/25/21 18:10 Blood Culture (Wb) - Anticubital Right Blood Culture - Preliminary No growth in 48 hours. 04/25/21 21:50 Mucosa - Nasopharyngeal Respiratory Panel (PCR) - Final 04/25/21 22:15 Interface Orders Legionella Antigen - Final 04/25/21 22:15 Urine, Clean Catch Streptococcus pneumoniae Antigen (M - Final 04/25/21 16:41 Nasal Secretion SARS-CoV-2 Antigen (Rapid) - Final Physical Exam Narrative Physical Examination: General: Awake, alert, oriented x 3 and cooperative, seated upright in the ED bed, ill-appearing. Skin: Flushed color, normal turgor, no icterus, no cyanosis. HEENT: AT/NC, EOMI, PERRLA, dry MM, no carotid bruits or JVD noted. Lungs: Severely diminished, greater bases, difficulty taking any deep breath sec ondary to coughing elicited, increased respiratory rate, evidence respiratory increased work of breathing with mild accessory usage, no rales, ronchi or wheezing. Heart: Tachycardic with regular rhythm; no gallop, rub audible. Abdomen: Soft, NTTP, no obvious distention, hypoactive bowel sounds, no obvious HSM. Extremities: No cyanosis, clubbing, or edema. Neurological: Patient awake, alert, oriented as noted, cognitive function intact; pupils equally reactive to light and accommodation, cranial nerves II- XII grossly normal, moving all 4 extremities, no focal deficits, strength severely globally [place] secondary to acute presentation. Psychiatric: Affect appears fatigued, ill-appearing, evidence of increased work of breathing, no acute evidence of depressive or anxiety feelings. Const alert, oriented x3, no apparent distress and healthy appearing General Appearance: cooperative, well kempt and well developed Orientation / Consciousness: awake, oriented to person, oriented to place and oriented to time HEENT normocephalic, head/scalp atraumatic and moist oral mucous membranes Head and Scalp: normocephalic Eyes PERRL, EOMs intact bilaterally and conjunctivae normal Neck nuchal rigidity, supple, no JVD, thyroid normal and no carotid bruits General: trachea midline Resp normal respiratory effort, no retractions, no use of accessory muscles and clear to auscultation bilaterally Resp Narrative: Decreased breath sounds bilaterally Auscultation: Negative for rales, rhonchi or wheezes Cardio regular rate, regular rhythm, S1 normal heart sound, S2 normal heart sound, no murmurs, no rub and no gallops GI normal to inspection, nondistended, normoactive bowel sounds, soft to palpation, non-tender and non-distended Extremity no clubbing, cyanosis or edema Skin no rashes or lesions noted General Skin Exam: no breakdown Neuro oriented x3, CN's II-XII intact bilaterally, no focal motor deficits and no sensory deficits noted Sensorium / Orientation: awake and alert Speech: speech normal Psych thought process normal and affect normal Assessment & Plan Assessment/Plan (1) 2019 novel coronavirus-infected pneumonia (NCIP): PLAN: 1. COVID-19 pneumonia-continue remdesivir and dexamethasone-day #5- patient completes his remdesivir tonight #2 acute hypoxic respiratory failure-continue to monitor O2 sat and adjust O2 accordingly, patient remains on a Proventil inhaler, patient may need to be set up for supplemental oxygen at home, he needs to be reevaluated tomorrow for discharge home. #3 type 2 diabetes #4 hyperlipidemia #5 hypertension Charges/Coding Visit Charges Inpatient E&M: 68453 Subs Hosp L2
[2021-04-29] MEDS: Famotidine 20 MG Tablet PO (22:22)
[2021-04-29 23:31] LABS: Bedside Glucose 333 mg/dL (70-110)
[2021-04-30 03:36] VITALS: PULSE 55
[2021-04-30 03:50] VITALS: BP 109/81; PULSE 61; RESP 16; TEMP 36.6; O2SAT 94
[2021-04-30] MEDS: Insulin Lispro 100 UNIT/ML INSULN.PEN SC ×2 (06:32→11:52)
[2021-04-30 06:40] LABS: Bedside Glucose 280 mg/dL (70-110)
[2021-04-30 07:00] VITALS: PULSE 49
[2021-04-30 07:40] VITALS: O2SAT 93
[2021-04-30 08:41] LABS: Hematocrit 46.7 % (40-54); Mean Corp Hgb Conc 34.3 g/dL (32-36); Mean Corpuscular Hgb 30.1 pg (27.0-32.0); Mean Corpuscular Volume 87.8 fL (80-94); POSITIVE COUNT YES; POSITIVE MORPHOLOGY YES; Platelet Count 235 K/mm3 (150-450); RBC Distribution Width CV 11.9 % (11.6-14.6); RBC Distribution Width SD 38.2 fl (35.1-43.9); Red Blood Count 5.32 M/mm3 (4.6-6.2); White Blood Count 6.9 K/mm3 (4.4-11.0)
[2021-04-30 08:42] LABS: Differential Indicated MANUAL DIFF
[2021-04-30 09:09] LABS: Anion Gap 6 (5-15); BUN 16 mg/dL (7-18); BUN/Creat Ratio 21.4 RATIO (10-20); Calcium,Total 8.5 mg/dL (8.5-10.1); Chloride 103 mmol/L (98-107); Creatinine, Serum 0.75 mg/dL (0.70-1.30); EST Glomerular Filtration Rate 118 mL/min (>60); Est Glom Filt Rate - Afr Amer 142 mL/min (>60); Estimated Creatinine Clearance 121.67 ml/min; Glucose 254 mg/dL (74-106); Potassium 4.3 mmol/L (3.5-5.1); Sodium Level 134 mmol/L (136-145)
[2021-04-30 09:18] LABS: Lymphocyte 13 % (19-41); Metamyelocyte 2 % (0-1); Monocyte 11 % (0-10); Neutrophil-Segmented 74 % (47-70); Total Cells Counted 100 (MANUAL DIFF)
[2021-04-30 09:19] LABS: Absolute Lymphocyte Count 0.89 X10^3/uL (0.83-4.51); Absolute Neutrophil Count 5.1 X10^3/uL (2.0-7.7); Platelet Estimate ADEQUATE (ADEQ); Red Cell Morphology NORM C+C NORMAL (NORM C&C)
[2021-04-30 09:50] VITALS: BP 96/69; PULSE 89; RESP 18; TEMP 36.7; O2SAT 96
[2021-04-30] MEDS: Lisinopril 20 MG Tablet PO (10:01)
[2021-04-30] MEDS: DULoxetine Hcl 30 MG Capsule PO (10:01)
[2021-04-30] MEDS: Famotidine 20 MG Tablet PO (10:01)
[2021-04-30] MEDS: Albuterol Sulfate 8 gm Inhaler (60 puffs) 2 PUFF INHALATION (10:02)
[2021-04-30] MEDS: dexAMETHasone 4 MG/ML Vial 6 MG IV (10:02)
[2021-04-30] MEDS: Enoxaparin 30 MG/0.3 ML Syringe SC (10:02)
[2021-04-30 10:11] VITALS: O2SAT 88; O2SAT 92; O2SAT 94
--- NOTE | 2021-04-30 10:56 | PCM.DC ---
Discharge Instructions Diet Discharge Diet: Low fat / Low cholesterol and Carb Control Diet Activity Discharge Activity: Return to Normal Activity Dressing / Incision Call your doctor if you observe: Fever of 101 or Higher, Shortness of breath, Dizziness, Fainting spells, Swelling in the ankles, Chest pain and Increased palpitations (irregular heartbeat) Follow Up Care Test Results: Test results from this visit will be discussed in further detail at your follow-up appointment, if applicable. Discharge Plan Admission Admit Date/Time: 04/25/21 20:13 Attending Provider: Kendall Krueger Primary Care Provider: Azar Ivy Instructions Additional Instructions / Restrictions: Remain in quarantine for total of 20 days since the onset of symptoms. Monitor quarantine is over again recommend getting the second dose of your Covid vaccine. Discharge Orders/Prescriptions Prescriptions: New albuterol sulfate [Ventolin HFA] 90 mcg/actuation Hfa Aerosol Inhaler 2 puff inhalation 4X/DAY PRN (Reason: Shortness Of Breath Or Wheezing) Qty: 0 RF: 0 (DME) Aerochamber with Flowsignal Spacer 1 ea inhalation UD Qty: 0 RF: 0 dexamethasone 2 mg tablet 6 mg PO DAILY 5 Days Qty: 15 RF: 0 Continued atorvastatin 10 mg tablet 10 mg PO DAILY RF: 0 glipizide 10 mg tablet extended release 24hr 10 mg PO BID RF: 0 benazepril 20 mg tablet 20 mg PO DAILY RF: 0 metformin 750 mg tablet extended release 24 hr 750 mg PO BID RF: 0 duloxetine 30 mg capsule,delayed release(DR/EC) 30 mg PO DAILY RF: 0 Farxiga 5 mg tablet 5 mg PO DAILY RF: 0 Referrals / Follow Up: Azar Ivy MD [Primary Care Provider] - Within 1 Week Disposition Disposition (needs filled in before D/C Order can be placed): Home, Self Care
--- NOTE | 2021-04-30 11:01 | CASEMGMT ---
Per Aries TAPIA, pt qualifies for 2L w/ exertion home oxygen and pt had stated previously preference for [employer]. Referral faxed to Jesse and pt to use etank already at [facility]. Call to [facility] to update on referral and e-tank supplied. Pt is still independent in room and voices no further questions/concerns/needs. Dave TAPIA CM
[2021-04-30 12:01] LABS: Bedside Glucose 297 mg/dL (70-110)
--- NOTE | 2021-04-30 12:09 | PHA.DC.MC ---
Addendum entered and electronically signed by Selam Martell 04/30/21 12:10: Patient counseled via telephone due to COVID precautions. Original Note: Pharmacy Service has performed discharge medication reconciliation and counseling for this patient. 1. ALBUTEROL INHALER 2PUFFS 4X/DAY PRN SOB/WHEEZING 2. DEXAMETHASONE 6MG PO DAILY X 5 DAYS The patient's discharge medication list was reviewed for discrepancies and discrepancies were resolved. Home Medications Farxiga 5 mg PO DAILY 04/25/21 atorvastatin 10 mg PO DAILY 04/25/21 benazepril 20 mg PO DAILY 04/25/21 duloxetine 30 mg PO DAILY 04/25/21 glipizide 10 mg PO BID 04/25/21 metformin 750 mg PO BID 04/25/21 albuterol sulfate [Ventolin HFA] 2 puff INHALATION 4X/DAY PRN #0 g 04/30/21 dexamethasone 6 mg PO DAILY 5 Days #15 tab 04/30/21 inhalational spacing device [Aerochamber with Flowsignal] #0 ea 04/30/21 The patient was counseled on the following discharge medications and changes in medications for homegoing were reviewed. The Reason for Use, instructions for use, and potential side effects were reviewed for all new medications. The patient's questions regarding all of their medications were answered. The patient was able to verbally demonstrate an understanding of their discharge medications.
--- NOTE | 2021-04-30 17:56 | PCM.DC.SUM ---
Providers Date of Admission: 04/25/21 Primary Care Physician: Dr. Azar Ivy MD Reason For Visit: COVID PNA, HYPOXIA Diagnosis Discharge Diagnosis (1) 2019 novel coronavirus-infected pneumonia (NCIP): Status: Acute Code(s): U07.1 - COVID-19; J12.82 - Pneumonia due to coronavirus disease 2019 Medications at Discharge Home Medications Farxiga 5 mg PO DAILY 04/25/21 atorvastatin 10 mg PO DAILY 04/25/21 benazepril 20 mg PO DAILY 04/25/21 duloxetine 30 mg PO DAILY 04/25/21 glipizide 10 mg PO BID 04/25/21 metformin 750 mg PO BID 04/25/21 albuterol sulfate [Ventolin HFA] 2 puff INHALATION 4X/DAY PRN #0 g 04/30/21 dexamethasone 6 mg PO DAILY 5 Days #15 tab 04/30/21 inhalational spacing device [Aerochamber with Flowsignal] #0 ea 04/30/21 Hospital Course Operations None Procedures None Summary of Care Provided Minutes Spent on Discharge: 45 Hospital Course: Per HPI: The patient is a 51 y/o M w/ PMHx: Obesity, Diabetes mellitus type II, HTN, HLD, Anxiety and Depression who presents to the [facility] ED on 04/25/21 with history of significant fatigue, malaise with diagnosis of COVID-19 on 04/18/2021 with symptoms starting the day prior reporting that he did have his initial COVID-19 vaccination on the with progressively worsening fevers, chills, nausea, emesis, intermittent loose stools and worsening hypoxia with dyspnea and cough per his home pulse ox reporting at 84% when he is attempting to be active prompting eventual ED evaluation. Patient additionally reports decreased sense of taste and smell as well as body aches. His and his 2 children who are 17 and 20, all with only one single vaccination specifically Pfizer prior to onset of their symptoms are also ill at home. Work-up in the ED included T 98.9, heart rate 103, BP 117/87, respiratory rate 20, initially 87% on room air with eventual improvement to 94% on 6 L nasal cannula, CBC with WC 7.8, hemoglobin 16.1, platelet 164 with mild increased immature granulocytes otherwise no marked shift, D-dimer 0.87, BMP with sodium 131, potassium 3.1, BUN/creatinine 21/0.78, glucose 87, lactic acid 1.2, chest x-ray with bilateral pulmonary opacities suspicious for pneumonia, follow-up CTPA with no evidence of pulmonary emboli or arterial dissection, evident bilateral pneumonia, rapid Covid antigen was negative however he was tested outpatient already and was positive with presentation and imaging consistent with COVID-19, blood culture x2 pending per ED. in the ED patient ministered Decadron 6 mg p.o. x1 as well as normal saline. Hospital Course: 1. Acute hypoxic respiratory failure secondary to COVID-19 [id number] male presents to the hospital after receiving his first dose of the Covid vaccine on April 13. He was started on remdesivir and completed his course of remdesivir. He needs another 5 days of Decadron. He is on room air at rest however needs about 2 L with ambulation. I do recommend that he remain quarantined for 20 days since the onset of symptoms. At that point I do recommend that he get a second dose of the vaccine prior to flying down to [place] to see his family. D-dimer was elevated on admission, CT was negative for blood clots. I did discuss with him the plan for discharge and he expressed understanding of the risk benefits of going home and would like to go home today. 2. Hypertension tension, hyperlipidemia, type 2 diabetes, anxiety, depression all chronic medical conditions which complicate his care. His home medications were continued were appropriate Physical Exam Const alert, oriented x3 and no apparent distress General Appearance: cooperative HEENT normocephalic and moist oral mucous membranes Eyes PERRL, EOMs intact bilaterally and conjunctivae normal Neck supple and no JVD Resp normal respiratory effort, no retractions, no use of accessory muscles and clear to auscultation bilaterally Auscultation: diminished lung sounds; Negative for crackles, rales, rhonchi or wheezes Cardio regular rate, regular rhythm, S1 normal heart sound, S2 normal heart sound and no murmurs GI soft to palpation, non-tender and non-distended; Negative for hepatosplenomegaly Extremity no clubbing, cyanosis or edema Skin no rashes or lesions noted Neuro no focal motor deficits and no sensory deficits noted Psych affect normal Appearance: appropriate Weight / BMI Weight Weight: 205 lb 7.533 oz Body Mass Index (BMI) 29.7 ABG / Lab / Microbiology Data Result Diagrams: 04/30/21 08:34 04/30/21 08:34 Laboratory: Laboratory Results - last 24 hr 04/29/21 23:17: POC Glucose 333 H 04/30/21 06:31: POC Glucose 280 H 04/30/21 08:34: WBC 6.9, RBC 5.32, Hgb 16.0, Hct 46.7, MCV 87.8, MCH 30.1, MCHC 34.3, RDW Std Deviation 38.2, RDW Coeff of Vimal 11.9, Plt Count 235, MPV 11.0, Neut % (Auto) Not Reportable, Absolute Neuts (auto) 5.1, Absolute Lymphs (auto) 0.89, Total Counted 100, Neutrophils % (Manual) 74 H, Lymphocytes % (Manual) 13 L, Monocytes % (Manual) 11 H, Metamyelocytes % 2 H, Diff Path Review May foll, Platelet Estimate ADEQUATE, RBC Morphology NORM C+C 04/30/21 08:34: Sodium 134 L, Potassium 4.3, Chloride 103, Carbon Dioxide 25.0, Anion Gap 6, BUN 16, Creatinine 0.75, Estim Creat Clear Calc 121.67, Est GFR (MDRD) Af Amer 142, Est GFR (MDRD) Non-Af 118, BUN/Creatinine Ratio 21.4 H, Glucose 254 H, Calcium 8.5 04/30/21 11:48: POC Glucose 297 H Microbiology: Microbiology 04/25/21 18:15 Blood Culture (Wb) - Right Hand Blood Culture - Preliminary No growth in 48 hours. 04/25/21 18:10 Blood Culture (Wb) - Anticubital Right Blood Culture - Preliminary No growth in 48 hours. 04/25/21 21:50 Mucosa - Nasopharyngeal Respiratory Panel (PCR) - Final 04/25/21 22:15 Interface Orders Legionella Antigen - Final 04/25/21 22:15 Urine, Clean Catch Streptococcus pneumoniae Antigen (M - Final 04/25/21 16:41 Nasal Secretion SARS-CoV-2 Antigen (Rapid) - Final D/C Instructions Discharge Diet: Low fat / Low cholesterol and Carb Control Diet Call your doctor if you observe: Fever of 101 or Higher, Shortness of breath, Dizziness, Fainting spells, Swelling in the ankles, Chest pain and Increased palpitations (irregular heartbeat) Meaningful Use Info Meaningful Use Diagnoses (Choose all that apply): None applicable Discharge Plan Admission Admit Date/Time: 04/25/21 20:13 Attending Provider: Kendall Krueger Primary Care Provider: Azar Ivy Instructions Additional Instructions / Restrictions: Remain in quarantine for total of 20 days since the onset of symptoms. Monitor quarantine is over again recommend getting the second dose of your Covid vaccine. Discharge Orders/Prescriptions Prescriptions: New albuterol sulfate [Ventolin HFA] 90 mcg/actuation Hfa Aerosol Inhaler 2 puff inhalation 4X/DAY PRN (Reason: Shortness Of Breath Or Wheezing) Qty: 0 RF: 0 (DME) Aerochamber with Flowsignal Spacer 1 ea inhalation UD Qty: 0 RF: 0 dexamethasone 2 mg tablet 6 mg PO DAILY 5 Days Qty: 15 RF: 0 Continued atorvastatin 10 mg tablet 10 mg PO DAILY RF: 0 glipizide 10 mg tablet extended release 24hr 10 mg PO BID RF: 0 benazepril 20 mg tablet 20 mg PO DAILY RF: 0 metformin 750 mg tablet extended release 24 hr 750 mg PO BID RF: 0 duloxetine 30 mg capsule,delayed release(DR/EC) 30 mg PO DAILY RF: 0 Farxiga 5 mg tablet 5 mg PO DAILY RF: 0 Referrals / Follow Up: Azar Ivy MD [Primary Care Provider] - Within 1 Week (Office should call you to schedule, if you don't hear from them by 05/01 Please call them. ) Disposition Disposition (needs filled in before D/C Order can be placed): Home, Self Care Charges/Coding Visit Charges Inpatient E&M: 62790 Disch Hosp
[2021-05-01 13:15] LABS: Pathologist Review Reviewed
--- NOTE | 2021-05-01 15:37 | CASEMGMT ---
RN CM Discharge F/U Phone Call LACE: 12 Strata: 3 Discharge date: 04/30/21 Call date: 05/01/21 Call time: [id number] Admission dx: COVID pna, hypoxia Pt states has been 'not too bad' since discharge. Pt states no questions with d/c instructions/medications. Pt states concerns with getting home oxygen set up as they did not come out to home until [id number]. Pt states was discharged home around 1230. This RN CM will inquire as to why with [employer]. Pt states no further questions/concerns/needs at this time. [place] REGINA FRIEDMAN
== END 2021-04-30 12:22 | disposition home or self-care (01) | DRG 177 ==
LOC: ED 20:08 → PCU 20:30
PROVIDERS: Internal Medicine; Admitting Provider Family Medicine; Emergency Provider Emergency Medicine; PCP Family Medicine; Visit Provider Family Medicine
DX: U07.1 COVID-19 (principal); J12.82 Pneumonia due to coronavirus disease 2019; J96.01 Acute respiratory failure with hypoxia; E11.9 Type 2 diabetes mellitus without complications; I10 Essential (primary) hypertension; E78.5 Hyperlipidemia, unspecified; F32.9 Major depressive disorder, single episode, unspecified; F41.9 Anxiety disorder, unspecified; Z66 Do not resuscitate; E66.9 Obesity, unspecified; E87.6 Hypokalemia; Z68.30 Body mass index [BMI] 30.0-30.9, adult; Z82.49 Family history of ischemic heart disease and other diseases of the circulatory system
CPT/HCPCS: 36415; 71045; 71275; 80048; 80053; 80076; 82728; 82962; 83605; 83615; 83735; 83880; 84145; 85025; 85379; 86140; 87040; 87426; 87449; 87633; 94762; 99251; 99283; J7030; J7050; Q9967; A4216; G0463

== ENCOUNTER 2021-10-29 20:00 | Outpatient (CLI) | payer BC, SELFPAY | END 2021-10-29 23:59 | disposition home or self-care (01) | PROVIDERS: PCP Family Medicine; Referring Provider Nurse Practitioner Acute Care; Visit Provider Nurse Practitioner Acute Care | DX: G47.33 Obstructive sleep apnea (adult) (pediatric) (principal) | CPT/HCPCS: 95811 ==

== ENCOUNTER → 2022-02-07 | Outpatient (CLI) | payer BC, SELFPAY | END | disposition home or self-care (01) | LOC: SL 16:50 | PROVIDERS: PCP Family Medicine; Visit Provider Nurse Practitioner Acute Care | DX: Z00.00 Encounter for general adult medical examination without abnormal findings (principal) ==

== ENCOUNTER → 2022-03-13 | Outpatient (CLI) | payer BC, SELFPAY ==
[2022-03-13 10:14] LABS: Vitamin B12 251 pg/mL (211-911); Vitamin D,25 Hydroxy 31.3 ng/mL
[2022-03-13 10:18] LABS: Hemoglobin 15.6 g/dL (13.0-16.5); Mean Corp Hgb Conc 34.7 g/dL (32-36); Mean Corpuscular Hgb 31.3 pg (27.0-32.0); Mean Corpuscular Volume 90.2 fL (80-94); Platelet Count 194 K/mm3 (150-450); RBC Distribution Width SD 42.5 fl (35.1-43.9); Red Blood Count 4.99 M/mm3 (4.6-6.2); White Blood Count 6.2 K/mm3 (4.4-11.0)
[2022-03-13 10:26] LABS: ALB/GLOB Ratio 1.3 RATIO (0.9-2.4); AST(SGOT) 22 U/L (15-37); Alanine Aminotransfer ALT/SGPT 54 U/L (16-61); Alkaline Phosphatase 99 U/L (45-117); Anion Gap 8 (5-15); BUN 14 mg/dL (7-18); BUN/Creat Ratio 14.8 RATIO (10-20); CRP < 2.90 mg/L (0.0-3.0); Calcium,Total 8.7 mg/dL (8.5-10.1); Chloride 107 mmol/L (98-107); Cholesterol 109 mg/dL (200); Creatinine, Serum 0.95 mg/dL (0.70-1.30); EST Glomerular Filtration Rate 89 mL/min (>60); Est Glom Filt Rate - Afr Amer 108 mL/min (>60); Glucose 237 mg/dL (74-106); High Density Lipoprotein 40 mg/dL; Potassium 4.1 mmol/L (3.5-5.1); Sodium Level 138 mmol/L (136-145); Triglycerides 189 mg/dL; Uric Acid 6.9 mg/dL (3.5-7.2); Very Low Density Lipoprotein 38 mg/dL (5-40)
[2022-03-13 10:27] LABS: Erythrocyte Sedimentation Rate < 1 mm/hr (0-20)
== END | disposition home or self-care (01) ==
LOC: MTLAB 07:53
PROVIDERS: PCP Family Medicine; Referring Provider Family Medicine; Visit Provider Family Medicine
DX: E55.9 Vitamin D deficiency, unspecified (principal); M06.9 Rheumatoid arthritis, unspecified; E11.9 Type 2 diabetes mellitus without complications
CPT/HCPCS: 36415; 80053; 80061; 82306; 82607; 84403; 84550; 85027; 85652; 86140

== ENCOUNTER → 2022-04-11 | Outpatient (CLI) | payer BC, SELFPAY ==
[2022-04-11 12:24] LABS: Vitamin B12 597 pg/mL (211-911); Vitamin D,25 Hydroxy 31.5 ng/mL
[2022-04-26 15:08] LABS: Testosterone, Free 10.27 ng/dL (5.00-21.00)
[2022-04-26 20:40] LABS: Testosterone, % Free 4.37 % (1.50-4.20); Testosterone, Total 235 ng/dL (264-916)
== END | disposition home or self-care (01) ==
LOC: MTLAB 09:36
PROVIDERS: PCP Family Medicine; Referring Provider Family Medicine; Visit Provider Family Medicine
DX: E55.9 Vitamin D deficiency, unspecified (principal); E53.8 Deficiency of other specified B group vitamins; E34.9 Endocrine disorder, unspecified
CPT/HCPCS: 36415; 82306; 82607; 84402; 84403

== ENCOUNTER → 2022-06-25 | Outpatient (CLI) | payer BC, SELFPAY ==
[2022-06-25 12:37] LABS: AST(SGOT) 28 U/L (15-37); Alanine Aminotransfer ALT/SGPT 55 U/L (16-61); Alkaline Phosphatase 84 U/L (45-117); Bilirubin, Direct 0.35 mg/dL (0.00-0.30); Globulin 3.2 g/dL (2.2-4.2); PSA,Total - Annual Screen 0.26 ng/mL (0.00-4.00); Protein, Total 7.2 g/dL (6.4-8.2)
== END | disposition home or self-care (01) ==
LOC: MTLAB 09:41
PROVIDERS: PCP Family Medicine; Referring Provider Family Medicine; Visit Provider Family Medicine
DX: R79.89 Other specified abnormal findings of blood chemistry (principal)
CPT/HCPCS: 36415; 80076; 84153; G0103

== ENCOUNTER 2022-07-05 07:25 | Day surgery (SDC) | payer BC, SELFPAY ==
[2022-07-05] MEDS: Lactated Ringers 1,000 ML 15 ML IV (07:40)
[2022-07-05 07:56] VITALS: BP 138/94; PULSE 104; RESP 16; TEMP 36.8; O2SAT 95; BMI 31.0
--- NOTE | 2022-07-05 07:57 | HP.PCM_ITS ---
HPI - General HPI Narrative VALENTIN KAUFMAN, is a 52 M who presents for screening colonoscopy. The patient's last colonoscopy was over 20 years ago. The patient denies any abdominal pain or blood in the stool. Patient has no family history of colon cancer [facility], [facility] Medical History Anxiety and depression Arthritis CPAP (continuous positive airway pressure) dependence Diabetes Fatty liver Gastric reflux Gout Heartburn High cholesterol HLD (hyperlipidemia) Hypertension Leg cramps Non-smoker Obesity Restless legs Sleep apnea Home Medications atorvastatin 10 mg tablet 10 mg PO DAILY CHOLESTEROL 04/25/21 [History Last Taken 04/25/21] benazepril 20 mg tablet 20 mg PO DAILY BP 04/25/21 [History Last Taken 04/25/21] duloxetine 30 mg capsule,delayed release 30 mg PO DAILY DEPRESSION 04/25/21 [History Last Taken 04/25/21] glipizide 10 mg tablet, extended release 24 hr 10 mg PO BID DM 04/25/21 [History Last Taken 04/25/21] metformin 750 mg tablet,extended release 24 hr 750 mg PO BID DM 04/25/21 [History Last Taken 04/25/21] inhalational spacing device (Aerochamber with Flowsignal) #0 ea 04/30/21 [Rx Last Taken Unknown] cholecalciferol (vitamin D3) 50 mcg (2,000 unit) capsule 50 mcg PO DAILY 05/30/22 [History Last Taken Unknown] dulaglutide 0.75 mg/0.5 mL subcutaneous pen injector (Trulicity) 0.75 mg subcut QWEEK 05/30/22 [History Last Taken Unknown] mecobalamin (vitamin B12) 1,000 mcg chewable tablet 1,000 mcg PO DAILY 05/30/22 [History Last Taken Unknown] Allergy/AdvReac Type Severity Reaction Status Date / Time No Known Allergies Allergy Verified 07/05/22 07:55 Family History Mother History of venous thromboembolism Factor V Leiden mutation Father Heart disease Diabetes Surgical History History of colonoscopy History of wisdom tooth extraction No significant past surgical history Social History household members: spouse and children Smoking Status: Never smoker alcohol intake: never substance use type: does not use Past Medical/Surgical History Planned Operation Planned Operative Procedure/s: CSCOPE Previous Hospitalizations/Surgeries HX Hospitalizations: No Any Problems With Anesthesia: No You/Your Family Experience Fever (Hyperthermia) With Anes: No Cholinesterase deficiency: No Cardiovascular Hx Heart Attack: No Hx Hypertension: Yes (CONTROLLED BY MED) Respiratory Hx Chronic Obstructive Pulmonary Disease (COPD): No Hx Asthma: No Hx Emphysema: No Hx Sleep Apnea: Yes CPAP: Yes BIPAP: No Hx Respiratory Tract Infection/Cold (presently): No Result (for STOP score): Positive Smoking Status: Never smoker Gastrointestinal Hx Gastroesophageal Reflux: Yes Controlled With Meds: Yes Special diet followed at home: No Neurological Hx Seizures: No Does patient have nerve stimulator: No Reproduction : No Endocrine Hx Diabetes: Yes (1-5 years) Allergies No Known Allergies Allergy (Verified 07/05/22 07:55) Discharge Is Pt Admitted From a [facility], or a [facility]: No After D/C, Where Do you Plan to Go: Return Home Physical Exam Const alert and oriented x3 HEENT normocephalic Eyes PERRL Resp normal respiratory effort and normal air movement Cardio regular rate and regular rhythm GI soft to palpation, non-tender and non-distended Extremity normal to inspection Assessment & Plan Assessment/Plan (1) Encounter for screening for malignant neoplasm of colon: PLAN: I explained endoscopy in detail to the patient. I explained the risks including but not limited to stroke or heart attack with anesthesia, perforation of the GI tract, bleeding, infection. I explained that any of these could necessitate further emergency surgery. The patient understands and all questions were answered sufficiently. The patient wishes to proceed with procedure. Benedict Mitchell MD Pager: [facility] [address] [place] [address], [address] [place] [address] Office: Surgery Risks - Colonoscopy Risks Include but are not Limited To: Risks include but are not limited to: Bleeding, perforation requiring further surgery, inability to complete colonoscopy requiring barium enema.
--- NOTE | 2022-07-05 08:54 | OP.COLON_ITS ---
Patient Name: Osman Lilly Procedure Date: 07/05/2022 8:38 AM Date of : 1970 Age: 52 Procedure: Colonoscopy Indications: Screening for colorectal malignant neoplasm Providers: Benedict Mitchell MD Medicines: Monitored Anesthesia Care Patient Profile: This is a 52 year old male. Refer to note in patient chart for documentation of history and physical. Last Colonoscopy: more than 10 years ago. Complications: No immediate complications. Procedure: Pre-Anesthesia Assessment: - Prior to the procedure, a History and Physical was performed, and patient medications and allergies were reviewed. The patient's tolerance of previous anesthesia was also reviewed. The risks and benefits of the procedure and the sedation options and risks were discussed with the patient. All questions were answered, and informed consent was obtained. Prior Anticoagulants: The patient has taken no previous anticoagulant or antiplatelet agents. After reviewing the risks and benefits, the patient was deemed in satisfactory condition to undergo the procedure. After I obtained informed consent, the scope was passed under direct vision. Throughout the procedure, the patient's blood pressure, pulse, and oxygen saturations were monitored continuously. The adult colonoscope was introduced through the anus and advanced to the cecum, identified by appendiceal orifice and ileocecal valve. The colonoscopy was performed without difficulty. The patient tolerated the procedure well. The quality of the bowel preparation was good. Scope In: 8:45:01 AM Scope Withdrawal Time 0 hours 4 minutes 29 seconds Scope Out: 8:52:00 AM Total Procedure Duration Time 0 hours 6 minutes 59 seconds Findings: The entire examined colon appeared normal on direct and retroflexion views. Impression: - The entire examined colon is normal on direct and retroflexion views. - No specimens collected. Recommendation: - Discharge patient to home. - Resume previous diet. - Continue present medications. - Repeat colonoscopy in 10 years for screening purposes. Procedure Code(s): --- Professional --- 25231, Colonoscopy, flexible; diagnostic, including collection of specimen(s) by brushing or washing, when performed (separate procedure) Diagnosis Code(s): --- Professional --- Z12.11, Encounter for screening for malignant neoplasm of colon CPT copyright 2017 [employer]. All rights reserved. The codes documented in this report are preliminary and upon remote inpatient coder review may be revised to meet current compliance requirements. Benedict Mitchell MD 07/05/2022 8:53:47 AM This report has been signed electronically. Number of Addenda: 0 Note Initiated On: 07/05/2022 8:38 AM
[2022-07-05 08:55] VITALS: BP 121/91; BP 138/94; PULSE 95; RESP 18; TEMP 36.9; O2SAT 94
--- NOTE | 2022-07-05 08:55 | OP.CCLET_ITS ---
07/05/2022 Azar Ivy [address] [place] [address] Re : Colonoscopy procedure for Osman Lilly Dear Dr. Ivy This procedure was performed on Tuesday, July 05, 2022. My impressions and recommendations are as follows: Impressions : - The entire examined colon is normal on direct and retroflexion views. - No specimens collected. Recommendations : - Discharge patient to home. - Resume previous diet. - Continue present medications. - Repeat colonoscopy in 10 years for screening purposes. My findings are described in the full procedure note, which is enclosed. If I can be of further assistance, please feel free to contact me at Doctor phone number(s): , Work: . Sincerely, Benedict Mitchell MD 07/05/2022 8:53:47 AM This report has been signed electronically.
[2022-07-05 09:00] VITALS: BP 120/91; BP 138/94; PULSE 89; RESP 18; O2SAT 94
[2022-07-05 09:05] VITALS: BP 106/80; BP 138/94; PULSE 88; RESP 16; O2SAT 94
[2022-07-05 09:10] VITALS: BP 114/83; BP 138/94; PULSE 77; RESP 16; TEMP 37.1; O2SAT 93
[2022-07-05 09:40] VITALS: BP 138/94
[2022-07-05 11:11] LABS: Bedside Glucose 257 mg/dL (74-106)
== END 2022-07-05 09:52 | disposition home or self-care (01) ==
LOC: EN 07:25 → AC 07:26
PROVIDERS: PCP Family Medicine; Referring Provider Family Medicine; Visit Provider Surgery
PROC: 0DJD8ZZ Inspection of Lower Intestinal Tract, Via Natural or Artificial Opening Endoscopic (ICD-10-PCS; CPT 45378; principal; 2022-07-05 08:25)
DX: Z12.11 Encounter for screening for malignant neoplasm of colon (principal); E11.9 Type 2 diabetes mellitus without complications; E78.00 Pure hypercholesterolemia, unspecified; K76.0 Fatty (change of) liver, not elsewhere classified; I10 Essential (primary) hypertension; G47.33 Obstructive sleep apnea (adult) (pediatric); Z79.899 Other long term (current) drug therapy; Z79.84 Long term (current) use of oral hypoglycemic drugs
CPT/HCPCS: 45378; 82962; J7120; J2405

== ENCOUNTER 2022-09-02 04:22 | Emergency (ER) | payer BC, SELFPAY ==
[2022-09-02 04:23] VITALS: BP 143/88; PULSE 89; RESP 18; TEMP 35.5; O2SAT 96; BMI 33.2
--- NOTE | 2022-09-02 04:33 | VDLE_ITS ---
Reason For Study: LEG PAIN RIGHT LEFT GSV is normal. CFV is compressible, spontaneous, phasic, CFV is compressible, spontaneous, phasic, competent, and demonstrates normal competent and demonstrates normal augmentation. augmentation. FV is compressible, spontaneous, phasic, competent and demonstrates normal augmentation. POP V is compressible, spontaneous, phasic, competent and demonstrates normal augmentation. T/P Trunk is compressible. PTV is compressible. RT PerV is compressible. Procedure This is a venous duplex using B-mode, color flow and spectral Doppler. Exam performed portable in ED. The exam was diagnostic. A preliminary report was called and/or faxed to Dr. Maxwell. VL/Venous Duplex US, Unilateral Interpretation Summary There is no evidence of right lower extremity deep vein thrombosis. Right great saphenous vein appears patent and compressible segmentally. Normal flow patterns left common f emoral vein Ordering Physician: Jose Luis Anders Referring Physician: Joo Ivy Performed By: Justin Dash RVT
--- NOTE | 2022-09-02 04:48 | RAD_ITS ---
EXAM: XR RIGHT KNEE COMPLETE, 4 OR MORE VIEWS CLINICAL INDICATION: pain TECHNIQUE: Four or more views of the right knee. This report was created using [employer] report generation technology. COMPARISON: None. FINDINGS: BONES/JOINTS: Unremarkable. No acute fracture. No subluxation. Normal alignment. Preservation of the joint space. No sclerotic or destructive changes observed. SOFT TISSUES: Unremarkable. No soft tissue swelling or gas. No radiopaque foreign body. RAD/Knee 4 or More Views IMPRESSION: Negative right knee x-rays. Electronically Signed: Saeed Strong MD at 5:00 EST ,
--- NOTE | 2022-09-02 04:59 | EDS_ITS ---
HPI History of Present Illness Chief Complaint: Lower Extremity Injury Informant: patient and spouse/S.O. Narrative Narrative: Patient complains of some pain behind his right knee. Its been going on about a week. No notable swelling. No fevers or chills. It is painful when he bears weight. He has no known injury to the area. No lifting straining pulling or pushing. He did have a flight to [place] back in July. It was about a 2- hour flight. He did not have symptoms after that. He has a family history of factor V Leiden but he thinks he has been tested and negative. He has never had a DVT or PE. He has no pulmonary symptoms. [facility] Medical History Anxiety and depression Arthritis CPAP (continuous positive airway pressure) dependence Diabetes Fatty liver Gastric reflux Gout Heartburn High cholesterol HLD (hyperlipidemia) Hypertension Leg cramps Non-smoker Obesity Restless legs Sleep apnea Home Medications atorvastatin 10 mg tablet 10 mg PO DAILY CHOLESTEROL 04/25/21 [History Last Taken 04/25/21] benazepril 20 mg tablet 20 mg PO DAILY BP 04/25/21 [History Last Taken 04/25/21] duloxetine 30 mg capsule,delayed release 30 mg PO DAILY DEPRESSION 04/25/21 [History Last Taken 04/25/21] glipizide 10 mg tablet, extended release 24 hr 10 mg PO BID DM 04/25/21 [History Last Taken 04/25/21] metformin 750 mg tablet,extended release 24 hr 750 mg PO BID DM 04/25/21 [History Last Taken 04/25/21] inhalational spacing device (Aerochamber with Flowsignal) #0 ea 04/30/21 [Rx Last Taken Unknown] cholecalciferol (vitamin D3) 50 mcg (2,000 unit) capsule 50 mcg PO DAILY 05/30/22 [History Last Taken Unknown] dulaglutide 0.75 mg/0.5 mL subcutaneous pen injector (Trulicity) 0.75 mg subcut QWEEK 05/30/22 [History Last Taken Unknown] mecobalamin (vitamin B12) 1,000 mcg chewable tablet 1,000 mcg PO DAILY 05/30/22 [History Last Taken Unknown] Allergy/AdvReac Type Severity Reaction Status Date / Time No Known Allergies Allergy Verified 09/02/22 04:25 Family History Mother History of venous thromboembolism Factor V Leiden mutation Father Heart disease Diabetes Surgical History History of colonoscopy History of wisdom tooth extraction No significant past surgical history Social History household members: spouse and children Smoking Status: Never smoker alcohol intake: never substance use type: does not use ROS ROS ED Constitutional Constitutional ED: Denies chills, fever(s) or subjective Cardiovascular Cardiovascular: Denies chest pain or palpitations Respiratory/Chest Respiratory/Chest: Denies cough or dyspnea Gastrointestinal Gastrointestinal: Denies nausea or vomiting Musculoskeletal Musculoskeletal: Reports arthralgias; Denies myalgias Integumentary Denies Abrasions or rash Neurologic Neurologic: Denies paresthesias or weakness Hematologic/Lymphatic Hematologic/Lymphatic: Denies easy bleeding, easy bruising or lymphadenopathy Allergic/Immunologic Allergic/Immunologic ED: Denies urticaria EXAM Physical Exam Narrative Exam Narrative: Patient awake alert no acute distress. HEENT shows no pallor. Mucous membranes are moist. Neck has normal range of motion Lungs are clear. Oxygen saturation is normal on room air at 96%. Heart is regular. Abdomen is soft with no tenderness. Extremities show no edema or cords. No distended veins. He has pain that goes into the calf but its not tender to palpate. He does have some tenderness behind the knee. I do not really notice a difference between his right and his left. There is no effusion. There is no warmth. No erythema. I do not feel any cord above or below or at the area. Distal pulses and color is normal. Neuro shows normal sensation. He is awake and alert and appropriate Const Vital Signs: 09/02/22 04:23 Temperature 96 F L Temperature Source Temporal Pulse Rate 89 Respiratory Rate 18 Blood Pressure 143/88 H Blood Pressure Mean 106 Pulse Ox 96 Oxygen Delivery Method Room Air MDM MDM MDM Narrative Medical decision making narrative: My independent interpretation of the patient's 4 view x-ray of the right knee shows some mild irregularity of the proximal fibula but no sign of fracture. The knee itself shows no fracture or dislocation or notable effusion. Final reading also shows negative right knee x-ray. Patient is pending ultrasound. Patient will be turned over to the oncoming physician pending this study. Radiography Diagnostic Testing: Clinical Impression(s) from Imaging Studies Knee X-Ray 09/02/22 04:48 IMPRESSION: Negative right knee x-rays. Electronically Signed: Saeed Strong MD at 5:00 EST , Discharge Plan Triage Chief Complaint: Lower Extremity Injury ED Provider: Jose Luis Anders Dx/Rx/DC Orders Clinical Impression: Acute pain of right knee Instructions: ED Knee Pain of Uncertain Cause Prescriptions: No Action Trulicity 0.75 mg/0.5 mL pen injector 0.75 mg subcut QWEEK cholecalciferol (vitamin D3) 50 mcg (2,000 unit) capsule 50 mcg PO DAILY mecobalamin (vitamin B12) 1,000 mcg tablet,chewable 1,000 mcg PO DAILY atorvastatin 10 mg tablet 10 mg PO DAILY glipizide 10 mg tablet extended release 24hr 10 mg PO BID benazepril 20 mg tablet 20 mg PO DAILY metformin 750 mg tablet extended release 24 hr 750 mg PO BID duloxetine 30 mg capsule,delayed release(DR/EC) 30 mg PO DAILY (DME) Aerochamber with Flowsignal Spacer 1 ea inhalation UD Qty: 0 0RF Rx Instructions: As Directed Primary Care Provider: Azar Ivy Referrals: Azar Ivy MD [Primary Care Provider] - 3-5 Days
== END 2022-09-02 09:08 | disposition home or self-care (01) ==
PROVIDERS: Emergency Provider Emergency Medicine; PCP Family Medicine; Visit Provider Emergency Medicine
DX: M25.561 Pain in right knee (principal); E11.9 Type 2 diabetes mellitus without complications; E78.5 Hyperlipidemia, unspecified; I10 Essential (primary) hypertension; G47.30 Sleep apnea, unspecified; Z99.89 Dependence on other enabling machines and devices
CPT/HCPCS: 73564; 93971; 99283

== ENCOUNTER → 2022-09-03 | Outpatient (CLI) | payer BC, SELFPAY ==
[2022-09-03 10:35] LABS: Lyme Ab Screen Interpretation REF LAB
[2022-09-03 12:19] LABS: Absolute Lymphocyte Count 2.26 X10^3/uL (0.83-4.51); Absolute Neutrophil Count 7.1 X10^3/uL (2.0-7.7); Basophil# 0.06 X10^3/uL; Basophil% 0.6 % (0-1); Eosinophils% 0.9 % (0-5); Hematocrit 48.3 % (40-54); Hemoglobin 16.8 g/dL (13.0-16.5); Lymphocyte # 2.26 X10^3/ul (0.83-4.51); Lymphocyte % 20.8 % (19-41); Mean Corp Hgb Conc 34.8 g/dL (32-36); Mean Corpuscular Hgb 30.3 pg (27.0-32.0); Mean Corpuscular Volume 87.2 fL (80-94); Mean Platelet Vol. 12.3 fl (6.2-12.0); Monocyte# 1.25 X10^3/uL; Monocyte% 11.5 % (0-10); NRBC Flagged by Analyzer 0 % (0-5); Neutrophil % 65.5 % (47-70); Platelet Count 210 K/mm3 (150-450); RBC Distribution Width CV 12.5 % (11.6-14.6); RBC Distribution Width SD 39.8 fl (35.1-43.9); Red Blood Count 5.54 M/mm3 (4.6-6.2); White Blood Count 10.9 K/mm3 (4.4-11.0)
[2022-09-03 12:36] LABS: Anion Gap 11 (5-15); BUN 15 mg/dL (7-18); BUN/Creat Ratio 12.8 RATIO (10-20); Calcium,Total 9.2 mg/dL (8.5-10.1); Chloride 102 mmol/L (98-107); Creatinine, Serum 1.17 mg/dL (0.70-1.30); EST Glomerular Filtration Rate 70 mL/min (>60); Est Glom Filt Rate - Afr Amer 84 mL/min (>60); Glucose 297 mg/dL (74-106); Potassium 4.1 mmol/L (3.5-5.1); Sodium Level 136 mmol/L (136-145)
[2022-09-04 16:42] LABS: Lyme Scn Total Ab w/Rflx Negative (Negative)
== END | disposition home or self-care (01) ==
LOC: MFPLAB 10:33
PROVIDERS: PCP Family Medicine; Visit Provider Family Medicine
DX: Z76.89 Persons encountering health services in other specified circumstances (principal); W57.XXXA Bitten or stung by nonvenomous insect and other nonvenomous arthropods, initial encounter
CPT/HCPCS: 36415; 80048; 85025; 86618

== ENCOUNTER → 2022-09-26 | Outpatient (CLI) | payer BC, SELFPAY ==
--- NOTE | 2022-09-26 07:04 | EKG12_ITS ---
Test Reason : PRE-OP Blood Pressure : / mmHG Vent. Rate : 078 BPM Atrial Rate : 078 BPM P-R Int : 162 ms QRS Dur : 080 ms QT Int : 358 ms P-R-T Axes : 000 183 168 degrees QTc Int : 408 ms Normal sinus rhythm Nonspecific ST and T wave abnormality Poor R wave progression Abnormal ECG Confirmed by BENEDICT GAONA, ERIC ([id number]), subeditor NICOLE LOPEZ ([id number]) on 09/27/2022 12:44:11 PM Referred By: Syed Macedo Confirmed By:ERIC MCMULLEN MD
[2022-09-26 08:54] LABS: Hematocrit 46.2 % (40-54); Hemoglobin 15.6 g/dL (13.0-16.5); Mean Corp Hgb Conc 33.8 g/dL (32-36); Mean Corpuscular Hgb 30.2 pg (27.0-32.0); Mean Corpuscular Volume 89.5 fL (80-94); Mean Platelet Vol. 11.7 fl (6.2-12.0); Platelet Count 188 K/mm3 (150-450); RBC Distribution Width CV 12.2 % (11.6-14.6); Red Blood Count 5.16 M/mm3 (4.6-6.2); White Blood Count 6.2 K/mm3 (4.4-11.0)
[2022-09-26 09:01] LABS: Anion Gap 7 (5-15); BUN 15 mg/dL (7-18); Calcium,Total 8.6 mg/dL (8.5-10.1); Chloride 105 mmol/L (98-107); EST Glomerular Filtration Rate 84 mL/min (>60); Est Glom Filt Rate - Afr Amer 102 mL/min (>60); Glucose 265 mg/dL (74-106); Potassium 4.4 mmol/L (3.5-5.1); Sodium Level 137 mmol/L (136-145)
[2022-09-27 08:05] LABS: Hemoglobin A1c 9.3 % (3.8-5.6)
== END | disposition home or self-care (01) ==
PROVIDERS: PCP Family Medicine; Referring Provider Physician Assistant; Visit Provider Physician Assistant
DX: Z01.818 Encounter for other preprocedural examination (principal); Z01.810 Encounter for preprocedural cardiovascular examination
CPT/HCPCS: 36415; 80048; 83036; 85027; 93005

== ENCOUNTER → 2022-09-27 | Outpatient (CLI) | payer BC, SELFPAY | END | disposition home or self-care (01) | LOC: LAB 14:16 | PROVIDERS: PCP Family Medicine; Visit Provider Physician Assistant | DX: E11.9 Type 2 diabetes mellitus without complications (principal) ==

== ENCOUNTER → 2022-10-08 | Outpatient (CLI) | payer BC, SELFPAY ==
[2022-10-08 15:37] LABS: ALB/GLOB Ratio 1.4 RATIO (0.9-2.4); AST(SGOT) 27 U/L (15-37); Alanine Aminotransfer ALT/SGPT 49 U/L (16-61); Albumin, Serum 4.3 g/dL (3.2-5.0); Alkaline Phosphatase 67 U/L (45-117); Anion Gap 10 (5-15); BUN 12 mg/dL (7-18); BUN/Creat Ratio 13.8 RATIO (10-20); Calcium,Total 9.3 mg/dL (8.5-10.1); Chloride 106 mmol/L (98-107); Cholesterol 120 mg/dL (200); Creatinine, Serum 0.87 mg/dL (0.70-1.30); EST Glomerular Filtration Rate 99 mL/min (>60); Est Glom Filt Rate - Afr Amer 119 mL/min (>60); Globulin 3.1 g/dL (2.2-4.2); Glucose 93 mg/dL (74-106); High Density Lipoprotein 46 mg/dL; Potassium 3.8 mmol/L (3.5-5.1); Protein, Total 7.4 g/dL (6.4-8.2); Sodium Level 139 mmol/L (136-145); Triglycerides 236 mg/dL; Very Low Density Lipoprotein 47 mg/dL (5-40)
[2022-10-08 15:39] LABS: Vitamin B12 402 pg/mL (211-911); Vitamin D,25 Hydroxy 24.2 ng/mL
== END | disposition home or self-care (01) ==
LOC: MTLAB 12:41
PROVIDERS: PCP Family Medicine; Referring Provider Family Medicine; Visit Provider Family Medicine
DX: E11.9 Type 2 diabetes mellitus without complications (principal); R79.89 Other specified abnormal findings of blood chemistry; E53.8 Deficiency of other specified B group vitamins; E55.9 Vitamin D deficiency, unspecified
CPT/HCPCS: 36415; 80053; 80061; 82306; 82607; 84403

== ENCOUNTER → 2023-01-22 | Outpatient (CLI) | payer BC, SELFPAY ==
[2023-01-22 17:07] LABS: Absolute Lymphocyte Count 2.34 X10^3/uL (0.83-4.51); Absolute Neutrophil Count 3.3 X10^3/uL (2.0-7.7); Basophil# 0.04 X10^3/uL; Basophil% 0.6 % (0-1); Eosinophils% 1.6 % (0-5); Hematocrit 49.6 % (40-54); Hemoglobin 16.6 g/dL (13.0-16.5); Lymphocyte # 2.34 X10^3/ul (0.83-4.51); Lymphocyte % 36.3 % (19-41); Mean Corp Hgb Conc 33.5 g/dL (32-36); Mean Corpuscular Hgb 30.3 pg (27.0-32.0); Mean Corpuscular Volume 90.7 fL (80-94); Mean Platelet Vol. 11.3 fl (6.2-12.0); Monocyte% 9.3 % (0-10); NRBC Flagged by Analyzer 0 % (0-5); Neutrophil # 3.31 X10^3/uL (2.7-7.7); Neutrophil % 51.4 % (47-70); Platelet Count 181 K/mm3 (150-450); RBC Distribution Width CV 12.2 % (11.6-14.6); RBC Distribution Width SD 40.4 fl (35.1-43.9); Red Blood Count 5.47 M/mm3 (4.6-6.2); White Blood Count 6.4 K/mm3 (4.4-11.0)
[2023-01-22 18:15] LABS: Anion Gap 7 (5-15); BUN 13 mg/dL (7-18); BUN/Creat Ratio 13.1 RATIO (10-20); Calcium,Total 9.5 mg/dL (8.5-10.1); Chloride 103 mmol/L (98-107); Creatinine, Serum 0.99 mg/dL (0.70-1.30); EST Glomerular Filtration Rate 85 mL/min (>60); Est Glom Filt Rate - Afr Amer 102 mL/min (>60); Glucose 189 mg/dL (74-106); Potassium 4.9 mmol/L (3.5-5.1); Sodium Level 138 mmol/L (136-145)
== END | disposition home or self-care (01) ==
LOC: LAB 16:55
PROVIDERS: PCP Family Medicine; Referring Provider Orthopaedic Surgery; Visit Provider Orthopaedic Surgery
DX: Z01.812 Encounter for preprocedural laboratory examination (principal)
CPT/HCPCS: 36415; 80048; 85025

== ENCOUNTER 2023-05-07 15:48 | Outpatient (CLI) | payer BC, SELFPAY ==
[2023-05-07 18:29] LABS: Vitamin D,25 Hydroxy 25.8 ng/mL
[2023-05-07 21:03] LABS: ALB/GLOB Ratio 1.6 RATIO (0.9-2.4); AST(SGOT) 23 U/L (15-37); Alanine Aminotransfer ALT/SGPT 50 U/L (16-61); Albumin, Serum 4.4 g/dL (3.2-5.0); Alkaline Phosphatase 81 U/L (45-117); Anion Gap 11 (5-15); BUN 17 mg/dL (7-18); BUN/Creat Ratio 13.4 RATIO (10-20); Calcium,Total 9.1 mg/dL (8.5-10.1); Chloride 102 mmol/L (98-107); Creatinine, Serum 1.27 mg/dL (0.70-1.30); EST Glomerular Filtration Rate 63 mL/min (>60); Est Glom Filt Rate - Afr Amer 77 mL/min (>60); Globulin 2.7 g/dL (2.2-4.2); Glucose 178 mg/dL (74-106); Potassium 3.8 mmol/L (3.5-5.1); Protein, Total 7.1 g/dL (6.4-8.2); Sodium Level 137 mmol/L (136-145)
== END 2023-05-07 23:59 | disposition home or self-care (01) ==
LOC: MFPLAB 15:48
PROVIDERS: PCP Family Medicine; Visit Provider Family Medicine
DX: R79.89 Other specified abnormal findings of blood chemistry (principal); E55.9 Vitamin D deficiency, unspecified
CPT/HCPCS: 36415; 80053; 82306; 84403

== ENCOUNTER → 2023-11-13 | Outpatient (CLI) | payer BC, SELFPAY ==
[2023-11-13 15:23] LABS: Hematocrit 45.4 % (40-54); Hemoglobin 15.5 g/dL (13.0-16.5); Mean Corp Hgb Conc 34.1 g/dL (32-36); Mean Corpuscular Hgb 30.3 pg (27.0-32.0); Mean Corpuscular Volume 88.7 fL (80-94); Mean Platelet Vol. 11.8 fl (6.2-12.0); Platelet Count 197 K/mm3 (150-450); RBC Distribution Width CV 12.3 % (11.6-14.6); RBC Distribution Width SD 40.6 fl (35.1-43.9); Red Blood Count 5.12 M/mm3 (4.6-6.2); White Blood Count 8.2 K/mm3 (4.4-11.0)
[2023-11-13 16:29] LABS: ALB/GLOB Ratio 1.5 RATIO (0.9-2.4); AST(SGOT) 15 U/L (15-37); Alanine Aminotransfer ALT/SGPT 31 U/L (16-61); Albumin, Serum 4.1 g/dL (3.2-5.0); Alkaline Phosphatase 89 U/L (45-117); Anion Gap 7 (5-15); BUN 15 mg/dL (7-18); BUN/Creat Ratio 17.7 RATIO (10-20); Chloride 107 mmol/L (98-107); Creatinine, Serum 0.85 mg/dL (0.70-1.30); EST Glomerular Filtration Rate 101 mL/min (>60); Est Glom Filt Rate - Afr Amer 122 mL/min (>60); Globulin 2.8 g/dL (2.2-4.2); Glucose 133 mg/dL (74-106); PSA,Total - Annual Screen 0.31 ng/mL (0.00-4.00); Potassium 3.9 mmol/L (3.5-5.1); Protein, Total 6.9 g/dL (6.4-8.2); Sodium Level 138 mmol/L (136-145)
== END | disposition home or self-care (01) ==
LOC: MFPLAB 14:08
PROVIDERS: PCP Family Medicine; Visit Provider Family Medicine
DX: R79.89 Other specified abnormal findings of blood chemistry (principal)
CPT/HCPCS: 36415; 80053; 84153; 85027; G0103